=== PATIENT | male | born 1960 | race Caucasian/White ===

== ENCOUNTER 2021-08-06 15:58 | Inpatient (IN) ==
[2021-08-06 17:09] LABS: Immature Granulocytes % 0.4 % (0-4); Lymphocytes % 8.7 %; Mean Corpuscular Volume 95.6 fL (83.0-100.0); Red Cell Distribution Width 12.8 % (11.5-14.5)
[2021-08-06 17:11] LABS: Basophils % 0.5 %; Eosinophils % 0.3 %; Hematocrit 43.7 % (37.5-50.1); Hemoglobin 15.2 g/dL (12.9-16.9); Immature Platelets 9.2 % (1.1-6.1); Lymphocytes # 0.7 K/mcL (0.6-4.6); Mean Corpuscular HGB Conc 34.8 g/dL (31.6-35.5); Mean Corpuscular Hemoglobin 33.3 pg (28.0-33.3); Mean Platelet Volume 10.4 fL (9.4-12.4); Monocytes # 0.8 K/mcL (0.0-1.3); Monocytes % 10.4 %; Neutrophils # 6.2 K/mcL (1.6-8.9); Red Blood Count 4.57 M/mcL (4.19-5.50); Segmented Neutrophils % 79.7 %; White Blood Count 7.8 K/mcL (4.3-11.1)
[2021-08-06] MEDS ORDERED: Isovue-370 500 ML BOTTLE IVP ONE (17:15)
[2021-08-06] MEDS ORDERED: diazePAM 2 MG TABLET PO ONE (17:19)
[2021-08-06] MEDS ORDERED: Ketorolac 30 MG/ML VIAL IVP ONE (17:21)
[2021-08-06 17:27] LABS: BUN/Creatinine Ratio 6 (6-26); Blood Urea Nitrogen 3 mg/dL (6-20); Calcium 8.1 mg/dL (8.6-10.3); Carbon Dioxide 22 mEq/L (23-29); Chloride 88 mEq/L (98-107); Glucose 108 mg/dL (70-105); Osmolality,Calculated 249 (280-300); Potassium 3.5 mEq/L (3.5-5.1); Sodium 121 mEq/L (136-145); eGFR For African Americans > 60 (> 60); eGFR For Non-African Americans > 60 (> 60)
[2021-08-06 17:41] LABS: Troponin I 0.07 ng/mL (< 0.04)
[2021-08-06 17:48] LABS: Platelet Count 72 K/mcL (140-400)
[2021-08-06 17:49] LABS: Platelet Estimate Decreased (Normal)
[2021-08-06 19:04] LABS: Influenza A PCR Negative (Negative); Influenza B PCR Negative (Negative); Resp. Syncytial Virus PCR Negative (Negative)
[2021-08-06 19:05] LABS: SARS-CoV-2 by PCR (In House) Positive (Negative)
[2021-08-06 19:21] LABS: Bilirubin,Urine Negative (Negative); Blood,Urine Negative (Negative); Clarity,Urine Clear (Clear); Color,Urine Light-Yellow (Yellow); Glucose,Urine (UA) Normal (Normal); Ketones,Urine Negative (Negative); Leukocyte Esterase,Urine Negative (Negative); Nitrite,Urine Negative (Negative); PH,Urine 6.5 pH Units (5.0-8.0); Protein,Urine 30 mg/dL (Neg-Trace); RBC,Urine 0-3 per hpf (0-3); Specific Gravity,Urine > 1.030 (1.010-1.025); Urobilinogen,Urine Normal (Normal); WBC,Urine 0-3 per hpf (0-3)
[2021-08-06] MEDS ORDERED: Aspirin 325 MG TABLET PO ONE (20:09)
[2021-08-06] MEDS ORDERED: Naloxone 0.4 MG/ML INJ IVP PRN (20:55)
[2021-08-06] MEDS ORDERED: Acetaminophen 325 MG TABLET PO PRN (20:55)
[2021-08-06] MEDS ORDERED: Ondansetron 4 MG/2 ML VIAL IVP PRN (20:55)
[2021-08-06] MEDS ORDERED: Melatonin 3 MG TABLET PO PRN (20:55)
[2021-08-06] MEDS ORDERED: Saliva Stimulant 44.3ml BOTTLE PO PRN (20:58)
[2021-08-06] MEDS ORDERED: *HR* LORazepam 2 MG/ML VIAL IVP PRN ×2 (21:03)
[2021-08-06] MEDS ORDERED: Perflutren Lipid Microsphere 1.3 ML in 0.9 % Sodium Chloride 8.7 ML IVP PRN (21:19)
[2021-08-06] MEDS: Calcium Gluconate 1gm/50mL 1 GM/50 ML BAG IVPB SCH ×2 (22:14→23:05)
[2021-08-06] MEDS: Chlorhexidine Rinse 15 ML MOUTHWASH MM SCH (22:15)
[2021-08-06 22:30] LABS: C-Reactive Protein 10 mg/L (Less than 10); Lactate Dehydrogenase 231 Units/L (140-271)
[2021-08-06 22:31] LABS: Albumin 3.2 g/dL (3.5-5.7); Bilirubin,Direct 0.2 mg/dL (0.0-0.2); Bilirubin,Indirect 0.3 mg/dL (0.0-1.0); Bilirubin,Total 0.5 mg/dL (0.3-1.0); Globulin 3.2 g/dL (2.4-3.5); Total Protein 6.4 g/dL (6.4-8.9)
[2021-08-06 22:35] LABS: Troponin I 0.05 ng/mL (< 0.04)
[2021-08-06] MEDS ORDERED: GI Cocktail 40 ML EACH PO ONE (22:38)
[2021-08-06 22:50] LABS: Ferritin 210 ng/mL (20-250)
[2021-08-06 22:57] LABS: Amphetamine Screen,Urine Negative ng/mL (Cutoff=1000); Barbiturate Screen,Urine Negative ng/mL (Cutoff=200); Benzodiazepines Screen,Urine Negative ng/mL (Cutoff=200); Cannabinoid Screen,Urine Negative ng/mL (Cutoff = 50); Cocaine Screen,Urine Negative ng/mL (Cutoff= 300); Opiate Screen,Urine Negative ng/mL (Cutoff=300); Phencyclidine Screen,Urine Negative ng/mL (Cutoff=25)
[2021-08-06] MEDS: *HR* HYDROcodone/Acet 5/325 mg TABLET PO PRN (23:05)
[2021-08-06] MEDS: Budesonide/Formoterol 160/4.5 1 PUFF INH IH SCH (23:47)
[2021-08-06] MEDS: Ipratropium 1 PUFF INHALER IH SCH (23:47)
[2021-08-07] MEDS ORDERED: Furosemide 20 MG/2 ML VIAL IVP ONE (01:38)
[2021-08-07 01:48] LABS: Immature Granulocytes % 0.5 % (0-4); Lymphocytes % 5.4 %
[2021-08-07 01:50] LABS: Basophils % 0.3 %; Hemoglobin 14.5 g/dL (12.9-16.9); Immature Platelets 9.9 % (1.1-6.1); Lymphocytes # 0.5 K/mcL (0.6-4.6); Mean Corpuscular HGB Conc 34.5 g/dL (31.6-35.5); Mean Corpuscular Volume 95.7 fL (83.0-100.0); Mean Platelet Volume 10.6 fL (9.4-12.4); Monocytes # 0.8 K/mcL (0.0-1.3); Monocytes % 8.4 %; Neutrophils # 7.9 K/mcL (1.6-8.9); Platelet Count 66 K/mcL (140-400); Red Blood Count 4.39 M/mcL (4.19-5.50); Red Cell Distribution Width 12.8 % (11.5-14.5); Segmented Neutrophils % 85.4 %; White Blood Count 9.2 K/mcL (4.3-11.1)
[2021-08-07 01:55] LABS: Prothrombin Time 11.4 Seconds (9.4-12.1)
[2021-08-07 01:57] LABS: Estimated Average Glucose 131 mg/dl; Hemoglobin A1C 6.2 %
[2021-08-07 01:58] LABS: Activated Partial Thrombo Time 39.9 Seconds (26.0-36.0)
[2021-08-07 02:07] LABS: C-Reactive Protein 16 mg/L (Less than 10); Lactate Dehydrogenase 214 Units/L (140-271)
[2021-08-07 02:08] LABS: Alanine Aminotransferase 36 Units/L (7-52); Albumin 3.1 g/dL (3.5-5.7); Alkaline Phosphatase 160 Units/L (34-104); Aspartate Amino Transferase 96 Units/L (13-39); BUN/Creatinine Ratio 6 (6-26); Bilirubin,Total 0.6 mg/dL (0.3-1.0); Blood Urea Nitrogen 4 mg/dL (6-20); Calcium 8.7 mg/dL (8.6-10.3); Carbon Dioxide 28 mEq/L (23-29); Chloride 89 mEq/L (98-107); Chol/HDL Ratio 2.1 (0-4.9); Cholesterol 121 mg/dL (< 200); Ethanol < 10 mg/dL (Less than 10); Glucose 127 mg/dL (70-105); HDL Cholesterol 58 mg/dL (40-59); LDL Cholesterol,Calculated 53 mg/dL (< 100); Magnesium 1.8 mg/dL (1.6-2.6); Osmolality,Calculated 256 (280-300); Phosphorous 3.3 mg/dL (2.7-4.5); Potassium 3.8 mEq/L (3.5-5.1); Sodium 124 mEq/L (136-145); Total Protein 6.1 g/dL (6.4-8.9); Triglycerides 51 mg/dL (< 150); eGFR For African Americans > 60 (> 60); eGFR For Non-African Americans > 60 (> 60)
[2021-08-07 02:20] LABS: Thyroid Stimulating Hormone 0.866 mcIU/mL (0.340-5.600)
[2021-08-07 02:26] LABS: Ferritin 196 ng/mL (20-250)
[2021-08-07] MEDS: Nicotine 21 MG PATCH.TD24 TD SCH ×2 (02:44→21:28)
[2021-08-07] MEDS: Ipratropium 1 PUFF INHALER IH SCH ×4 (04:00→19:47)
[2021-08-07] MEDS ORDERED: Remdesivir 200 MG in 0.9 % Sodium Chloride 100 ML IVPB ONE (04:00)
[2021-08-07] MEDS ORDERED: *HR* Promethazine 25 MG/ML VIAL IM PRN (05:12)
[2021-08-07 05:40] LABS: ABG Base Excess 8 mEq/L (-2 to 3); ABG HCO3 30 mEq/L (21-27); ABG Oxygen Saturation 92 % (95-98); ABG PCO2 34 mmHg (35-45); ABG PH 7.55 pH Units (7.32-7.45); ABG PO2 53 mmHg (85-104); ABG TCO2 31 mEq/L (20-26)
[2021-08-07] MEDS: Thiamine (B-1) 100 MG TABLET PO SCH (09:44)
[2021-08-07] MEDS: Vitamin B Complex/Vit C/Vit E 1 EACH TABLET PO SCH (09:44)
[2021-08-07] MEDS: Cholecalciferol (D-3) 1,000 UNIT (25MCG) TABLET PO SCH (09:44)
[2021-08-07] MEDS: Folic Acid 1 MG TABLET PO SCH (09:44)
[2021-08-07] MEDS: Chlorhexidine Rinse 15 ML MOUTHWASH MM SCH ×2 (09:44→21:28)
[2021-08-07] MEDS: Gabapentin 300 MG CAPSULE PO SCH ×3 (09:44→23:47)
[2021-08-07] MEDS: Azithromycin 250 MG TABLET PO SCH (09:44)
[2021-08-07] MEDS: Aspirin 81 MG TAB.CHEW PO SCH (09:44)
[2021-08-07] MEDS: Furosemide 20 MG/2 ML VIAL IVP SCH (09:45)
[2021-08-07] MEDS: carvediloL 6.25 MG TABLET PO SCH ×2 (09:49→16:16)
[2021-08-07] MEDS: Artificial Tears SOLN 15 ML BOTTLE BOTH EYES SCH ×4 (09:51→21:40)
[2021-08-07] MEDS: Saliva Stimulant 44.3ml BOTTLE PO SCH ×4 (10:04→21:41)
[2021-08-07] MEDS: Saline Nasal Spray 44 ML BOTTLE NS SCH ×4 (10:04→21:41)
[2021-08-07] MEDS: Budesonide/Formoterol 160/4.5 1 PUFF INH IH SCH ×2 (10:45→19:47)
[2021-08-07] MEDS ORDERED: 0.9 % Sodium Chloride 500 ML IVC ONE (12:21)
[2021-08-07] MEDS: *HR* LORazepam 2 MG/ML VIAL IVP PRN (16:16)
[2021-08-07] MEDS ORDERED: Isovue-370 500 ML BOTTLE IVP ONE (17:29)
[2021-08-07] MEDS ORDERED: 0.9 % Sodium Chloride 1,000 ML IV ONE (21:22)
[2021-08-07] MEDS ORDERED: 0.9 % Sodium Chloride 1,000 ML ONE (21:26)
[2021-08-08 01:09] LABS: Mean Corpuscular Hemoglobin 33.9 pg (28.0-33.3); Red Cell Distribution Width 13.1 % (11.5-14.5); White Blood Count 11.4 K/mcL (4.3-11.1)
[2021-08-08 01:11] LABS: Basophils % 0.1 %; Hematocrit 43.2 % (37.5-50.1); Hemoglobin 14.6 g/dL (12.9-16.9); Immature Granulocytes % 0.8 % (0-4); Immature Platelets 11.4 % (1.1-6.1); Lymphocytes % 7.4 %; Mean Corpuscular HGB Conc 33.8 g/dL (31.6-35.5); Mean Corpuscular Volume 100.2 fL (83.0-100.0); Mean Platelet Volume 10.7 fL (9.4-12.4); Monocytes # 0.8 K/mcL (0.0-1.3); Monocytes % 6.8 %; Neutrophils # 9.7 K/mcL (1.6-8.9); Red Blood Count 4.31 M/mcL (4.19-5.50); Segmented Neutrophils % 84.9 %
[2021-08-08 01:12] LABS: Lymphocytes # 0.8 K/mcL (0.6-4.6); Platelet Count 73 K/mcL (140-400)
[2021-08-08 01:28] LABS: Alanine Aminotransferase 33 Units/L (7-52); Albumin 3.1 g/dL (3.5-5.7); Albumin/Globulin Ratio 0.9 (1.1-2.2); Alkaline Phosphatase 129 Units/L (34-104); Aspartate Amino Transferase 57 Units/L (13-39); BUN/Creatinine Ratio 12 (6-26); Bilirubin,Total 0.5 mg/dL (0.3-1.0); Blood Urea Nitrogen 8 mg/dL (6-20); C-Reactive Protein 42 mg/L (Less than 10); Carbon Dioxide 28 mEq/L (23-29); Chloride 95 mEq/L (98-107); Globulin 3.3 g/dL (2.4-3.5); Glucose 150 mg/dL (70-105); Osmolality,Calculated 269 (280-300); Potassium 3.7 mEq/L (3.5-5.1); Sodium 129 mEq/L (136-145); Total Protein 6.4 g/dL (6.4-8.9); eGFR For African Americans > 60 (> 60); eGFR For Non-African Americans > 60 (> 60)
[2021-08-08] MEDS: Ipratropium 1 PUFF INHALER IH SCH ×4 (03:45→20:03)
[2021-08-08] MEDS: Remdesivir 100 MG in 0.9 % Sodium Chloride 100 ML IVPB SCH (04:59)
[2021-08-08] MEDS: Azithromycin 250 MG TABLET PO SCH (08:25)
[2021-08-08] MEDS: Furosemide 20 MG/2 ML VIAL IVP SCH (08:25)
[2021-08-08] MEDS: Vitamin B Complex/Vit C/Vit E 1 EACH TABLET PO SCH (08:25)
[2021-08-08] MEDS: Folic Acid 1 MG TABLET PO SCH (08:25)
[2021-08-08] MEDS: Chlorhexidine Rinse 15 ML MOUTHWASH MM SCH ×2 (08:25→20:08)
[2021-08-08] MEDS: Gabapentin 300 MG CAPSULE PO SCH ×3 (08:26→16:18)
[2021-08-08] MEDS: Aspirin 81 MG TAB.CHEW PO SCH (08:26)
[2021-08-08] MEDS: Cholecalciferol (D-3) 1,000 UNIT (25MCG) TABLET PO SCH (08:26)
[2021-08-08] MEDS: carvediloL 6.25 MG TABLET PO SCH ×2 (08:26→16:18)
[2021-08-08] MEDS: Thiamine (B-1) 100 MG TABLET PO SCH (08:26)
[2021-08-08] MEDS: Budesonide/Formoterol 160/4.5 1 PUFF INH IH SCH ×2 (08:27→20:04)
[2021-08-08] MEDS: Saliva Stimulant 44.3ml BOTTLE PO SCH ×4 (08:34→20:12)
[2021-08-08] MEDS: Saline Nasal Spray 44 ML BOTTLE NS SCH ×4 (08:34→20:12)
[2021-08-08] MEDS: Artificial Tears SOLN 15 ML BOTTLE BOTH EYES SCH ×4 (08:34→20:12)
[2021-08-08] MEDS: *HR* LORazepam 2 MG/ML VIAL IVP PRN (13:05)
[2021-08-08] MEDS: *HR* HYDROcodone/Acet 5/325 mg TABLET PO PRN (13:05)
[2021-08-08] MEDS: Nicotine 21 MG PATCH.TD24 TD SCH (20:09)
[2021-08-09] MEDS: Gabapentin 300 MG CAPSULE PO SCH ×4 (00:24→21:32)
[2021-08-09 03:26] LABS: Basophils % 0.2 %
[2021-08-09 03:28] LABS: Eosinophils % 0.3 %; Hematocrit 37.4 % (37.5-50.1); Hemoglobin 12.6 g/dL (12.9-16.9); Immature Granulocytes % 0.5 % (0-4); Lymphocytes % 10.6 %; Mean Corpuscular HGB Conc 33.7 g/dL (31.6-35.5); Mean Corpuscular Hemoglobin 33.4 pg (28.0-33.3); Mean Corpuscular Volume 99.2 fL (83.0-100.0); Mean Platelet Volume 11.5 fL (9.4-12.4); Monocytes # 0.7 K/mcL (0.0-1.3); Monocytes % 7.4 %; Red Blood Count 3.77 M/mcL (4.19-5.50); White Blood Count 9.6 K/mcL (4.3-11.1)
[2021-08-09] MEDS: Ipratropium 1 PUFF INHALER IH SCH ×4 (03:32→20:03)
[2021-08-09 03:35] LABS: Neutrophils # 7.8 K/mcL (1.6-8.9); Platelet Count 61 K/mcL (140-400)
[2021-08-09 03:46] LABS: Alanine Aminotransferase 25 Units/L (7-52); Albumin 2.8 g/dL (3.5-5.7); Alkaline Phosphatase 105 Units/L (34-104); Aspartate Amino Transferase 50 Units/L (13-39); BUN/Creatinine Ratio 13 (6-26); Bilirubin,Total 0.5 mg/dL (0.3-1.0); Blood Urea Nitrogen 9 mg/dL (6-20); C-Reactive Protein 32 mg/L (Less than 10); Calcium 7.9 mg/dL (8.6-10.3); Carbon Dioxide 28 mEq/L (23-29); Chloride 96 mEq/L (98-107); Globulin 2.9 g/dL (2.4-3.5); Glucose 148 mg/dL (70-105); Osmolality,Calculated 273 (280-300); Potassium 3.3 mEq/L (3.5-5.1); Sodium 131 mEq/L (136-145); Total Protein 5.7 g/dL (6.4-8.9); eGFR For African Americans > 60 (> 60); eGFR For Non-African Americans > 60 (> 60)
[2021-08-09] MEDS: Remdesivir 100 MG in 0.9 % Sodium Chloride 100 ML IVPB SCH (06:05)
[2021-08-09] MEDS: Budesonide/Formoterol 160/4.5 1 PUFF INH IH SCH ×2 (07:44→20:03)
[2021-08-09] MEDS ORDERED: Potassium Chloride Elixir 20 MEQ/15 ML UDC PO ONE (08:07)
[2021-08-09] MEDS ORDERED: Isovue-370 500 ML BOTTLE IVP ONE (08:10)
[2021-08-09] MEDS: Azithromycin 250 MG TABLET PO SCH (10:06)
[2021-08-09] MEDS: Thiamine (B-1) 100 MG TABLET PO SCH (10:06)
[2021-08-09] MEDS: Vitamin B Complex/Vit C/Vit E 1 EACH TABLET PO SCH (10:06)
[2021-08-09] MEDS: Cholecalciferol (D-3) 1,000 UNIT (25MCG) TABLET PO SCH (10:07)
[2021-08-09] MEDS: Aspirin 81 MG TAB.CHEW PO SCH (10:07)
[2021-08-09] MEDS: Folic Acid 1 MG TABLET PO SCH (10:07)
[2021-08-09] MEDS: carvediloL 6.25 MG TABLET PO SCH ×2 (10:07→16:36)
[2021-08-09] MEDS: Chlorhexidine Rinse 15 ML MOUTHWASH MM SCH ×2 (10:07→21:32)
[2021-08-09] MEDS: Furosemide 20 MG/2 ML VIAL IVP SCH (10:07)
[2021-08-09] MEDS: Saline Nasal Spray 44 ML BOTTLE NS SCH ×4 (10:19→21:33)
[2021-08-09] MEDS: Artificial Tears SOLN 15 ML BOTTLE BOTH EYES SCH ×4 (10:19→21:33)
[2021-08-09] MEDS: Saliva Stimulant 44.3ml BOTTLE PO SCH ×4 (10:19→21:33)
[2021-08-09] MEDS: *HR* LORazepam 2 MG/ML VIAL IVP PRN (11:08)
[2021-08-09] MEDS: *HR* HYDROcodone/Acet 5/325 mg TABLET PO PRN (11:08)
[2021-08-09] MEDS: levoFLOXacin 750 MG/150 ML 750 MG/150 ML BAG IVPB SCH (11:50)
[2021-08-09] MEDS: *HR* Enoxaparin 60 MG/0.6 ML SYRINGE SQ SCH (16:36)
[2021-08-09] MEDS: Nicotine 21 MG PATCH.TD24 TD SCH (21:32)
[2021-08-10] MEDS: Remdesivir 100 MG in 0.9 % Sodium Chloride 100 ML IVPB SCH (03:48)
[2021-08-10] MEDS: Ipratropium 1 PUFF INHALER IH SCH ×4 (04:44→19:34)
[2021-08-10] MEDS: *HR* HYDROcodone/Acet 5/325 mg TABLET PO PRN ×2 (05:18→15:24)
[2021-08-10] MEDS: *HR* Enoxaparin 60 MG/0.6 ML SYRINGE SQ SCH ×2 (05:21→16:50)
[2021-08-10] MEDS: Budesonide/Formoterol 160/4.5 1 PUFF INH IH SCH ×2 (07:22→19:35)
[2021-08-10] MEDS: Folic Acid 1 MG TABLET PO SCH (08:57)
[2021-08-10] MEDS: Furosemide 20 MG/2 ML VIAL IVP SCH (08:57)
[2021-08-10] MEDS: Cholecalciferol (D-3) 1,000 UNIT (25MCG) TABLET PO SCH (08:57)
[2021-08-10] MEDS: Chlorhexidine Rinse 15 ML MOUTHWASH MM SCH ×2 (08:57→20:10)
[2021-08-10] MEDS: Vitamin B Complex/Vit C/Vit E 1 EACH TABLET PO SCH (08:57)
[2021-08-10] MEDS: Aspirin 81 MG TAB.CHEW PO SCH (08:57)
[2021-08-10] MEDS: levoFLOXacin 750 MG/150 ML 750 MG/150 ML BAG IVPB SCH (08:57)
[2021-08-10] MEDS: Azithromycin 250 MG TABLET PO SCH (08:58)
[2021-08-10] MEDS: Gabapentin 300 MG CAPSULE PO SCH ×3 (08:58→20:10)
[2021-08-10] MEDS: carvediloL 6.25 MG TABLET PO SCH ×2 (08:58→16:50)
[2021-08-10] MEDS: Thiamine (B-1) 100 MG TABLET PO SCH (08:58)
[2021-08-10 09:22] LABS: Basophils % 0.2 %
[2021-08-10] MEDS: Saliva Stimulant 44.3ml BOTTLE PO SCH ×4 (09:22→20:09)
[2021-08-10] MEDS: Artificial Tears SOLN 15 ML BOTTLE BOTH EYES SCH ×4 (09:22→20:09)
[2021-08-10] MEDS: Saline Nasal Spray 44 ML BOTTLE NS SCH ×4 (09:22→20:09)
[2021-08-10 09:24] LABS: Eosinophils # 0.1 K/mcL (0.0-0.6); Eosinophils % 0.5 %; Hematocrit 38.5 % (37.5-50.1); Hemoglobin 13.1 g/dL (12.9-16.9); Immature Granulocytes % 0.4 % (0-4); Immature Platelets 11.1 % (1.1-6.1); Lymphocytes # 1.4 K/mcL (0.6-4.6); Mean Platelet Volume 11.9 fL (9.4-12.4); Monocytes # 1.1 K/mcL (0.0-1.3); Monocytes % 12.4 %; Neutrophils # 6.6 K/mcL (1.6-8.9); Red Blood Count 3.85 M/mcL (4.19-5.50); Red Cell Distribution Width 12.9 % (11.5-14.5); Segmented Neutrophils % 71.5 %; White Blood Count 9.2 K/mcL (4.3-11.1)
[2021-08-10 09:31] LABS: Platelet Count 86 K/mcL (140-400)
[2021-08-10 09:44] LABS: Alanine Aminotransferase 25 Units/L (7-52); Albumin/Globulin Ratio 1.1 (1.1-2.2); Alkaline Phosphatase 116 Units/L (34-104); Aspartate Amino Transferase 42 Units/L (13-39); BUN/Creatinine Ratio 19 (6-26); Bilirubin,Total 0.4 mg/dL (0.3-1.0); Blood Urea Nitrogen 13 mg/dL (6-20); Carbon Dioxide 30 mEq/L (23-29); Chloride 97 mEq/L (98-107); Globulin 2.8 g/dL (2.4-3.5); Glucose 164 mg/dL (70-105); Osmolality,Calculated 278 (280-300); Potassium 3.2 mEq/L (3.5-5.1); Sodium 132 mEq/L (136-145); Total Protein 5.8 g/dL (6.4-8.9); eGFR For African Americans > 60 (> 60); eGFR For Non-African Americans > 60 (> 60)
[2021-08-10 10:10] LABS: C-Reactive Protein 28 mg/L (Less than 10)
[2021-08-10] MEDS ORDERED: Perflutren Lipid Microsphere 1.3 ML in 0.9 % Sodium Chloride 8.7 ML IVP PRN (10:14)
[2021-08-10] MEDS ORDERED: Potassium Chloride Elixir 20 MEQ/15 ML UDC PO ONE (12:14)
[2021-08-10] MEDS: Nicotine 21 MG PATCH.TD24 TD SCH (20:10)
[2021-08-11] MEDS: Ipratropium 1 PUFF INHALER IH SCH ×2 (03:40→07:30)
[2021-08-11] MEDS: Remdesivir 100 MG in 0.9 % Sodium Chloride 100 ML IVPB SCH (04:21)
[2021-08-11] MEDS: *HR* Enoxaparin 60 MG/0.6 ML SYRINGE SQ SCH (04:22)
[2021-08-11 07:10] LABS: Basophils % 0.2 %; Eosinophils % 0.4 %; Hematocrit 37.5 % (37.5-50.1); Hemoglobin 12.5 g/dL (12.9-16.9); Immature Granulocytes % 0.4 % (0-4); Lymphocytes # 1.4 K/mcL (0.6-4.6); Mean Corpuscular HGB Conc 33.3 g/dL (31.6-35.5); Mean Corpuscular Hemoglobin 32.6 pg (28.0-33.3); Mean Corpuscular Volume 97.9 fL (83.0-100.0); Mean Platelet Volume 11.9 fL (9.4-12.4); Monocytes # 1.1 K/mcL (0.0-1.3); Monocytes % 11.9 %; Platelet Count 114 K/mcL (140-400); Red Blood Count 3.83 M/mcL (4.19-5.50); Red Cell Distribution Width 12.7 % (11.5-14.5); Segmented Neutrophils % 73.1 %; White Blood Count 9.6 K/mcL (4.3-11.1)
[2021-08-11 07:27] LABS: Alanine Aminotransferase 26 Units/L (7-52); Albumin 3.1 g/dL (3.5-5.7); Albumin/Globulin Ratio 1.1 (1.1-2.2); Alkaline Phosphatase 108 Units/L (34-104); Aspartate Amino Transferase 42 Units/L (13-39); BUN/Creatinine Ratio 17 (6-26); Bilirubin,Total 0.5 mg/dL (0.3-1.0); Blood Urea Nitrogen 11 mg/dL (6-20); Calcium 8.2 mg/dL (8.6-10.3); Carbon Dioxide 26 mEq/L (23-29); Chloride 97 mEq/L (98-107); Globulin 2.9 g/dL (2.4-3.5); Glucose 281 mg/dL (70-105); Osmolality,Calculated 282 (280-300); Potassium 3.1 mEq/L (3.5-5.1); Sodium 131 mEq/L (136-145); eGFR For African Americans > 60 (> 60); eGFR For Non-African Americans > 60 (> 60)
[2021-08-11] MEDS: Budesonide/Formoterol 160/4.5 1 PUFF INH IH SCH (07:31)
[2021-08-11] MEDS: Chlorhexidine Rinse 15 ML MOUTHWASH MM SCH (08:16)
[2021-08-11] MEDS: levoFLOXacin 750 MG/150 ML 750 MG/150 ML BAG IVPB SCH (08:16)
[2021-08-11] MEDS: Cholecalciferol (D-3) 1,000 UNIT (25MCG) TABLET PO SCH (08:17)
[2021-08-11] MEDS: Azithromycin 250 MG TABLET PO SCH (08:17)
[2021-08-11] MEDS: Gabapentin 300 MG CAPSULE PO SCH (08:18)
[2021-08-11] MEDS: Folic Acid 1 MG TABLET PO SCH (08:18)
[2021-08-11] MEDS: Furosemide 20 MG/2 ML VIAL IVP SCH (08:19)
[2021-08-11] MEDS: carvediloL 6.25 MG TABLET PO SCH (08:19)
[2021-08-11] MEDS: Vitamin B Complex/Vit C/Vit E 1 EACH TABLET PO SCH (08:19)
[2021-08-11] MEDS: Thiamine (B-1) 100 MG TABLET PO SCH (08:19)
[2021-08-11] MEDS: Aspirin 81 MG TAB.CHEW PO SCH (08:20)
[2021-08-11] MEDS: Saline Nasal Spray 44 ML BOTTLE NS SCH ×2 (08:23→12:00)
[2021-08-11] MEDS: Saliva Stimulant 44.3ml BOTTLE PO SCH ×2 (08:23→12:00)
[2021-08-11] MEDS: Artificial Tears SOLN 15 ML BOTTLE BOTH EYES SCH ×2 (08:23→12:01)
[2021-08-11 10:32] VITALS: BP 121/75; PULSE 96; TEMP 97.6
[2021-08-11 13:32] VITALS: O2SAT 98
== END 2021-08-11 14:40 | disposition home or self-care (01) | DRG 137 ==
LOC: SUATTDRO → 3BNU 15:58 → EMEROOARM 15:58 → SUATTDRO 20:41 → 3BNU 21:23
PROVIDERS: ADMIT Internal Medicine; ATTEND Internal Medicine

== ENCOUNTER 2021-12-15 18:27 | Inpatient (IN) ==
[2021-12-15] MEDS ORDERED: 0.9 % Sodium Chloride 1,000 ML IVC ONE ×2 (18:54→19:43)
[2021-12-15] MEDS ORDERED: methylPREDNISolone 125 MG/2 ML VIAL IVP ONE (18:55)
[2021-12-15] MEDS ORDERED: Ipratropium/Albuterol Neb 3 ML IH ONE (18:55)
[2021-12-15 19:20] LABS: VBG HCO3 24 mEq/L (21-27); VBG PCO2 33 mmHg (41-51); VBG PH 7.46 pH Units (7.32-7.42); VBG PO2 52 mmHg (25-50)
[2021-12-15 19:23] LABS: Hemoglobin 14.7 g/dL (12.9-16.9); Mean Corpuscular Volume 83.8 fL (83.0-100.0)
[2021-12-15 19:24] LABS: Hematocrit 40.2 % (37.5-50.1); Lymphocytes # 1.1 K/mcL (0.6-4.6); Mean Corpuscular HGB Conc 36.6 g/dL (31.6-35.5); Mean Corpuscular Hemoglobin 30.6 pg (28.0-33.3); Mean Platelet Volume 10.1 fL (9.4-12.4); Platelet Count 178 K/mcL (140-400); Red Cell Distribution Width 13.6 % (11.5-14.5); White Blood Count 28.4 K/mcL (4.3-11.1)
[2021-12-15 19:31] LABS: INR 1.4; Prothrombin Time 15.4 Seconds (9.4-12.1)
[2021-12-15 19:34] LABS: Activated Partial Thrombo Time 33.9 Seconds (26.0-36.0)
[2021-12-15] MEDS ORDERED: Piperacillin/Tazobactam 3.375 GM in 0.9 % Sodium Chloride Mini Bag 100 ML IVPB ONE (19:43)
[2021-12-15 19:52] LABS: Alanine Aminotransferase 37 Units/L (7-52); Albumin 3.1 g/dL (3.5-5.7); Alkaline Phosphatase 149 Units/L (34-104); Aspartate Amino Transferase 64 Units/L (13-39); BUN/Creatinine Ratio 4 (6-26); Bilirubin,Direct 0.4 mg/dL (0.0-0.2); Bilirubin,Indirect 0.7 mg/dL (0.0-1.0); Bilirubin,Total 1.1 mg/dL (0.3-1.0); Blood Urea Nitrogen 2 mg/dL (8-23); Carbon Dioxide 25 mEq/L (23-29); Chloride 73 mEq/L (98-107); Globulin 3.2 g/dL (2.4-3.5); Glucose 195 mg/dL (70-105); Lipase < 3 Units/L (11-82); Magnesium 1.8 mg/dL (1.6-2.6); Osmolality,Calculated 232 (280-300); Phosphorous 2.4 mg/dL (2.7-4.5); Sodium 110 mEq/L (136-145); Total Protein 6.3 g/dL (6.4-8.9); Troponin I 0.08 ng/mL (< 0.04); eGFR For African Americans > 60 (> 60); eGFR For Non-African Americans > 60 (> 60)
[2021-12-15 19:54] LABS: Monocytes # 1.7 K/mcL (0.0-1.3); Neutrophils # 25.6 K/mcL (1.6-8.9); Platelet Estimate Normal (Normal)
[2021-12-15] MEDS ORDERED: Potassium Chloride Elixir 20 MEQ/15 ML UDC PO ONE (19:55)
[2021-12-15 20:15] LABS: Influenza A PCR Negative (Negative); Influenza B PCR Negative (Negative); Resp. Syncytial Virus PCR Negative (Negative)
[2021-12-15 20:16] LABS: SARS-CoV-2 by PCR (In House) Negative (Negative)
[2021-12-15 21:32] LABS: Bilirubin,Urine Negative (Negative); Blood,Urine Negative (Negative); Clarity,Urine Clear (Clear); Color,Urine Colorless (Yellow); Glucose,Urine (UA) Normal (Normal); Ketones,Urine Negative (Negative); Leukocyte Esterase,Urine Negative (Negative); Nitrite,Urine Negative (Negative); PH,Urine 6.5 pH Units (5.0-8.0); Protein,Urine Negative (Neg-Trace); Specific Gravity,Urine 1.005 (1.010-1.025); Urobilinogen,Urine Normal (Normal)
[2021-12-15 21:50] LABS: Amphetamine Screen,Urine Negative ng/mL (Cutoff=1000); Barbiturate Screen,Urine Negative ng/mL (Cutoff=200); Benzodiazepines Screen,Urine Negative ng/mL (Cutoff=200); Cannabinoid Screen,Urine Negative ng/mL (Cutoff = 50); Cocaine Screen,Urine Negative ng/mL (Cutoff= 300); Opiate Screen,Urine Negative ng/mL (Cutoff=300); Phencyclidine Screen,Urine Negative ng/mL (Cutoff=25)
[2021-12-15] MEDS ORDERED: Naloxone 0.4 MG/ML INJ IVP PRN (22:23)
[2021-12-15] MEDS ORDERED: *HR* LORazepam 2 MG/ML VIAL IVP PRN ×2 (23:09)
[2021-12-15] MEDS: Piperacillin/Tazobactam 3.375 GM in 0.9 % Sodium Chloride Mini Bag 100 ML IVPB SCH (23:38)
[2021-12-15] MEDS: Ondansetron 4 MG/2 ML VIAL IVP PRN (23:39)
[2021-12-15] MEDS: *HR* LORazepam 2 MG/ML VIAL IVP PRN (23:39)
[2021-12-15] MEDS ORDERED: Albuterol 2.5 MG/3 ML NEBULIZER IH PRN (23:55)
[2021-12-16] MEDS ORDERED: 0.9 % Sodium Chloride 1,000 ML IVC SCH (01:00)
[2021-12-16 01:01] LABS: VBG Ionized Calcium 1.01 mmol/L (1.15-1.35)
[2021-12-16 01:18] LABS: BUN/Creatinine Ratio 5 (6-26); Blood Urea Nitrogen 2 mg/dL (8-23); Calcium 7.2 mg/dL (8.6-10.3); Carbon Dioxide 24 mEq/L (23-29); Chloride 88 mEq/L (98-107); Glucose 180 mg/dL (70-105); Osmolality,Calculated 249 (280-300); Potassium 3.2 mEq/L (3.5-5.1); Sodium 119 mEq/L (136-145); eGFR For African Americans > 60 (> 60); eGFR For Non-African Americans > 60 (> 60)
[2021-12-16] MEDS: Ipratropium/Albuterol Neb 3 ML IH SCH ×4 (04:20→23:08)
[2021-12-16 04:51] LABS: Basophils # 0.1 K/mcL (0.0-0.2); Basophils % 0.5 %; Hematocrit 39.2 % (37.5-50.1); Hemoglobin 13.9 g/dL (12.9-16.9); Immature Granulocytes % 0.7 % (0-4); Lymphocytes # 0.4 K/mcL (0.6-4.6); Mean Corpuscular HGB Conc 35.5 g/dL (31.6-35.5); Mean Corpuscular Hemoglobin 30.2 pg (28.0-33.3); Mean Corpuscular Volume 85.2 fL (83.0-100.0); Mean Platelet Volume 10.5 fL (9.4-12.4); Monocytes # 0.4 K/mcL (0.0-1.3); Neutrophils # 17.8 K/mcL (1.6-8.9); Platelet Count 171 K/mcL (140-400); Red Cell Distribution Width 13.8 % (11.5-14.5); Segmented Neutrophils % 94.8 %; White Blood Count 18.7 K/mcL (4.3-11.1)
[2021-12-16 04:58] LABS: INR 1.4; Prothrombin Time 15.7 Seconds (9.4-12.1)
[2021-12-16 05:29] LABS: BUN/Creatinine Ratio 7 (6-26); Blood Urea Nitrogen 3 mg/dL (8-23); Calcium 7.6 mg/dL (8.6-10.3); Carbon Dioxide 25 mEq/L (23-29); Chloride 89 mEq/L (98-107); Glucose 185 mg/dL (70-105); Osmolality,Calculated 255 (280-300); Potassium 3.6 mEq/L (3.5-5.1); Sodium 122 mEq/L (136-145); Troponin I 0.05 ng/mL (< 0.04); eGFR For African Americans > 60 (> 60); eGFR For Non-African Americans > 60 (> 60)
[2021-12-16] MEDS ORDERED: Vancomycin 1,250 MG/262.5 ML IV.SOLN IVPB SCH (08:00)
[2021-12-16] MEDS: MethylPREDNISolone 40 MG/ML VIAL IVP SCH ×3 (08:44→19:52)
[2021-12-16] MEDS: Vitamin B Complex/Vit C/Vit E 1 EACH TABLET PO SCH (08:45)
[2021-12-16] MEDS: Thiamine (B-1) 100 MG TABLET PO SCH (08:45)
[2021-12-16] MEDS: Folic Acid 1 MG TABLET PO SCH (08:45)
[2021-12-16 11:09] LABS: BUN/Creatinine Ratio 12 (6-26); Blood Urea Nitrogen 5 mg/dL (8-23); Calcium 7.6 mg/dL (8.6-10.3); Carbon Dioxide 27 mEq/L (23-29); Chloride 89 mEq/L (98-107); Glucose 185 mg/dL (70-105); Osmolality,Calculated 258 (280-300); Potassium 3.6 mEq/L (3.5-5.1); Sodium 123 mEq/L (136-145); eGFR For African Americans > 60 (> 60); eGFR For Non-African Americans > 60 (> 60)
[2021-12-16] MEDS: Beer can PO SCH ×3 (11:36→18:26)
[2021-12-16] MEDS: Piperacillin/Tazobactam 3.375 GM in 0.9 % Sodium Chloride Mini Bag 100 ML IVPB SCH ×3 (11:55→23:11)
[2021-12-16 15:33] LABS: BUN/Creatinine Ratio 16 (6-26); Blood Urea Nitrogen 7 mg/dL (8-23); Calcium 7.6 mg/dL (8.6-10.3); Carbon Dioxide 27 mEq/L (23-29); Chloride 90 mEq/L (98-107); Glucose 255 mg/dL (70-105); Osmolality,Calculated 265 (280-300); Potassium 3.5 mEq/L (3.5-5.1); Sodium 124 mEq/L (136-145); eGFR For African Americans > 60 (> 60); eGFR For Non-African Americans > 60 (> 60)
[2021-12-16] MEDS: Ondansetron 4 MG/2 ML VIAL IVP PRN (15:43)
[2021-12-16] MEDS: *HR* Heparin 5,000 UNIT/ML VIAL SQ SCH (18:24)
[2021-12-16 18:46] LABS: BUN/Creatinine Ratio 16 (6-26); Blood Urea Nitrogen 9 mg/dL (8-23); Carbon Dioxide 27 mEq/L (23-29); Chloride 90 mEq/L (98-107); Glucose 214 mg/dL (70-105); Osmolality,Calculated 267 (280-300); Potassium 3.6 mEq/L (3.5-5.1); Sodium 126 mEq/L (136-145); eGFR For African Americans > 60 (> 60); eGFR For Non-African Americans > 60 (> 60)
[2021-12-16] MEDS ORDERED: Dextrose 4 GM Chewable Tablets PO PRN ×2 (18:48)
[2021-12-16] MEDS ORDERED: D5% in Water 1,000 ML IVC PRN (18:48)
[2021-12-16] MEDS: D5% in Water 1,000 ML IVC SCH (19:36)
[2021-12-16] MEDS: Insulin LISPRO 300 UNITS/3 ML VIAL SUBQ SCH (20:12)
[2021-12-16] MEDS: Nicotine 21 MG PATCH.TD24 TD SCH (20:12)
[2021-12-16] MEDS ORDERED: Insulin LISPRO 300 UNITS/3 ML VIAL SUBQ SCH (21:00)
[2021-12-16 23:27] LABS: BUN/Creatinine Ratio 19 (6-26); Blood Urea Nitrogen 10 mg/dL (8-23); Calcium 7.7 mg/dL (8.6-10.3); Carbon Dioxide 29 mEq/L (23-29); Chloride 90 mEq/L (98-107); Glucose 109 mg/dL (70-105); Osmolality,Calculated 262 (280-300); Potassium 3.4 mEq/L (3.5-5.1); Sodium 126 mEq/L (136-145); eGFR For African Americans > 60 (> 60); eGFR For Non-African Americans > 60 (> 60)
[2021-12-17 01:15] LABS: Basophils # 0.1 K/mcL (0.0-0.2); Basophils % 0.3 %; Hematocrit 34.8 % (37.5-50.1); Immature Granulocytes % 1.1 % (0-4); Lymphocytes # 0.8 K/mcL (0.6-4.6); Lymphocytes % 3.4 %; Mean Corpuscular HGB Conc 35.3 g/dL (31.6-35.5); Mean Corpuscular Hemoglobin 30.9 pg (28.0-33.3); Mean Corpuscular Volume 87.4 fL (83.0-100.0); Mean Platelet Volume 10.1 fL (9.4-12.4); Monocytes # 1.4 K/mcL (0.0-1.3); Monocytes % 6.2 %; Neutrophils # 20.4 K/mcL (1.6-8.9); Platelet Count 180 K/mcL (140-400); Red Blood Count 3.98 M/mcL (4.19-5.50); Red Cell Distribution Width 13.9 % (11.5-14.5); White Blood Count 22.9 K/mcL (4.3-11.1)
[2021-12-17 01:16] LABS: Hemoglobin 12.3 g/dL (12.9-16.9)
[2021-12-17 01:28] LABS: VBG Ionized Calcium 1.13 mmol/L (1.15-1.35)
[2021-12-17 01:34] LABS: Magnesium 2.1 mg/dL (1.6-2.6); Phosphorous 2.1 mg/dL (2.7-4.5)
[2021-12-17 01:35] LABS: BUN/Creatinine Ratio 21 (6-26); Blood Urea Nitrogen 10 mg/dL (8-23); Calcium 7.4 mg/dL (8.6-10.3); Carbon Dioxide 29 mEq/L (23-29); Chloride 89 mEq/L (98-107); Glucose 149 mg/dL (70-105); Osmolality,Calculated 258 (280-300); Potassium 3.6 mEq/L (3.5-5.1); Sodium 123 mEq/L (136-145); eGFR For African Americans > 60 (> 60); eGFR For Non-African Americans > 60 (> 60)
[2021-12-17] MEDS: MethylPREDNISolone 40 MG/ML VIAL IVP SCH ×4 (01:47→20:14)
[2021-12-17] MEDS: Pantoprazole 40 MG VIAL IVP SCH ×2 (01:47→07:33)
[2021-12-17] MEDS: Ipratropium/Albuterol Neb 3 ML IH SCH ×4 (03:59→23:15)
[2021-12-17] MEDS: *HR* Heparin 5,000 UNIT/ML VIAL SQ SCH ×2 (05:24→17:38)
[2021-12-17] MEDS: Doxycycline 100 MG in 0.9 % Sodium Chloride Mini Bag 100 ML IVPB SCH ×2 (05:24→17:37)
[2021-12-17] MEDS: Thiamine (B-1) 100 MG TABLET PO SCH (07:33)
[2021-12-17] MEDS: Vitamin B Complex/Vit C/Vit E 1 EACH TABLET PO SCH (07:33)
[2021-12-17] MEDS: Folic Acid 1 MG TABLET PO SCH (07:33)
[2021-12-17] MEDS: Nicotine 21 MG PATCH.TD24 TD SCH (07:33)
[2021-12-17] MEDS: Piperacillin/Tazobactam 3.375 GM in 0.9 % Sodium Chloride Mini Bag 100 ML IVPB SCH ×3 (07:34→23:00)
[2021-12-17] MEDS: Insulin LISPRO 300 UNITS/3 ML VIAL SUBQ SCH ×4 (07:35→20:15)
[2021-12-17] MEDS: D5% in Water 1,000 ML IVC SCH ×2 (07:35→09:46)
[2021-12-17 08:09] LABS: BUN/Creatinine Ratio 18 (6-26); Blood Urea Nitrogen 9 mg/dL (8-23); Calcium 7.7 mg/dL (8.6-10.3); Carbon Dioxide 27 mEq/L (23-29); Chloride 88 mEq/L (98-107); Glucose 229 mg/dL (70-105); Osmolality,Calculated 260 (280-300); Potassium 3.5 mEq/L (3.5-5.1); Sodium 122 mEq/L (136-145); eGFR For African Americans > 60 (> 60); eGFR For Non-African Americans > 60 (> 60)
[2021-12-17] MEDS: Beer can PO SCH ×2 (08:23→11:02)
[2021-12-17 10:54] LABS: BUN/Creatinine Ratio 19 (6-26); Blood Urea Nitrogen 9 mg/dL (8-23); Calcium 7.8 mg/dL (8.6-10.3); Carbon Dioxide 32 mEq/L (23-29); Chloride 87 mEq/L (98-107); Glucose 110 mg/dL (70-105); Osmolality,Calculated 255 (280-300); Potassium 3.8 mEq/L (3.5-5.1); Sodium 123 mEq/L (136-145); eGFR For African Americans > 60 (> 60); eGFR For Non-African Americans > 60 (> 60)
[2021-12-17 15:12] LABS: BUN/Creatinine Ratio 18 (6-26); Blood Urea Nitrogen 9 mg/dL (8-23); Calcium 7.6 mg/dL (8.6-10.3); Carbon Dioxide 31 mEq/L (23-29); Chloride 86 mEq/L (98-107); Glucose 192 mg/dL (70-105); Osmolality,Calculated 258 (280-300); Potassium 3.6 mEq/L (3.5-5.1); Sodium 122 mEq/L (136-145); eGFR For African Americans > 60 (> 60); eGFR For Non-African Americans > 60 (> 60)
[2021-12-17 19:31] LABS: BUN/Creatinine Ratio 16 (6-26); Blood Urea Nitrogen 9 mg/dL (8-23); Calcium 7.8 mg/dL (8.6-10.3); Carbon Dioxide 30 mEq/L (23-29); Chloride 87 mEq/L (98-107); Glucose 212 mg/dL (70-105); Osmolality,Calculated 261 (280-300); Potassium 3.5 mEq/L (3.5-5.1); Sodium 123 mEq/L (136-145); eGFR For African Americans > 60 (> 60); eGFR For Non-African Americans > 60 (> 60)
[2021-12-17 22:30] LABS: BUN/Creatinine Ratio 17 (6-26); Blood Urea Nitrogen 9 mg/dL (8-23); Calcium 7.5 mg/dL (8.6-10.3); Carbon Dioxide 29 mEq/L (23-29); Chloride 91 mEq/L (98-107); Glucose 168 mg/dL (70-105); Osmolality,Calculated 261 (280-300); Potassium 3.5 mEq/L (3.5-5.1); Sodium 124 mEq/L (136-145); eGFR For African Americans > 60 (> 60); eGFR For Non-African Americans > 60 (> 60)
[2021-12-18] MEDS: MethylPREDNISolone 40 MG/ML VIAL IVP SCH ×4 (01:57→23:41)
[2021-12-18] MEDS: Ipratropium/Albuterol Neb 3 ML IH SCH ×4 (03:41→23:09)
[2021-12-18 04:10] LABS: VBG Ionized Calcium 1.11 mmol/L (1.15-1.35)
[2021-12-18 04:11] LABS: Basophils # 0.1 K/mcL (0.0-0.2); Basophils % 0.3 %; Eosinophils % 0.1 %; Hematocrit 36.4 % (37.5-50.1); Hemoglobin 12.4 g/dL (12.9-16.9); Immature Granulocytes % 0.9 % (0-4); Lymphocytes # 0.8 K/mcL (0.6-4.6); Lymphocytes % 4.6 %; Mean Corpuscular HGB Conc 34.1 g/dL (31.6-35.5); Mean Corpuscular Hemoglobin 30.1 pg (28.0-33.3); Mean Corpuscular Volume 88.3 fL (83.0-100.0); Mean Platelet Volume 9.9 fL (9.4-12.4); Monocytes # 0.9 K/mcL (0.0-1.3); Monocytes % 5.3 %; Neutrophils # 15.1 K/mcL (1.6-8.9); Platelet Count 197 K/mcL (140-400); Red Blood Count 4.12 M/mcL (4.19-5.50); Red Cell Distribution Width 13.9 % (11.5-14.5); Segmented Neutrophils % 88.8 %
[2021-12-18 04:23] LABS: Magnesium 2.1 mg/dL (1.6-2.6)
[2021-12-18] MEDS: *HR* Heparin 5,000 UNIT/ML VIAL SQ SCH ×2 (05:07→18:11)
[2021-12-18] MEDS: Doxycycline 100 MG in 0.9 % Sodium Chloride Mini Bag 100 ML IVPB SCH ×2 (05:08→18:19)
[2021-12-18] MEDS ORDERED: Potassium Phosphate 44 MEQ in 0.9 % Sodium Chloride 250 ML IVPB PRN (05:55)
[2021-12-18 07:14] LABS: Basophils % 0.2 %; Eosinophils % 0.1 %; Hematocrit 36.6 % (37.5-50.1); Hemoglobin 12.4 g/dL (12.9-16.9); Immature Granulocytes % 0.9 % (0-4); Lymphocytes # 0.8 K/mcL (0.6-4.6); Lymphocytes % 4.8 %; Mean Corpuscular HGB Conc 33.9 g/dL (31.6-35.5); Mean Corpuscular Hemoglobin 29.9 pg (28.0-33.3); Mean Corpuscular Volume 88.2 fL (83.0-100.0); Mean Platelet Volume 10.2 fL (9.4-12.4); Monocytes # 0.8 K/mcL (0.0-1.3); Monocytes % 4.4 %; Neutrophils # 15.5 K/mcL (1.6-8.9); Platelet Count 208 K/mcL (140-400); Red Blood Count 4.15 M/mcL (4.19-5.50); Segmented Neutrophils % 89.6 %; White Blood Count 17.3 K/mcL (4.3-11.1)
[2021-12-18 07:35] LABS: BUN/Creatinine Ratio 23 (6-26); Blood Urea Nitrogen 10 mg/dL (8-23); Calcium 7.6 mg/dL (8.6-10.3); Carbon Dioxide 29 mEq/L (23-29); Chloride 92 mEq/L (98-107); Glucose 191 mg/dL (70-105); Osmolality,Calculated 262 (280-300); Sodium 124 mEq/L (136-145); eGFR For African Americans > 60 (> 60); eGFR For Non-African Americans > 60 (> 60)
[2021-12-18] MEDS: Pantoprazole 40 MG VIAL IVP SCH (07:45)
[2021-12-18] MEDS: Thiamine (B-1) 100 MG TABLET PO SCH (07:45)
[2021-12-18] MEDS: Vitamin B Complex/Vit C/Vit E 1 EACH TABLET PO SCH (07:45)
[2021-12-18] MEDS: Folic Acid 1 MG TABLET PO SCH (07:45)
[2021-12-18] MEDS: Piperacillin/Tazobactam 3.375 GM in 0.9 % Sodium Chloride Mini Bag 100 ML IVPB SCH ×3 (07:45→23:41)
[2021-12-18] MEDS: Insulin LISPRO 300 UNITS/3 ML VIAL SUBQ SCH ×4 (07:46→22:07)
[2021-12-18] MEDS: Nicotine 21 MG PATCH.TD24 TD SCH (08:18)
[2021-12-18] MEDS: D5% in Water 1,000 ML IVC SCH ×2 (09:10→23:42)
[2021-12-18 16:09] LABS: BUN/Creatinine Ratio 21 (6-26); Blood Urea Nitrogen 11 mg/dL (8-23); Calcium 7.6 mg/dL (8.6-10.3); Carbon Dioxide 29 mEq/L (23-29); Chloride 92 mEq/L (98-107); Glucose 250 mg/dL (70-105); Osmolality,Calculated 270 (280-300); Potassium 3.6 mEq/L (3.5-5.1); Sodium 126 mEq/L (136-145); eGFR For African Americans > 60 (> 60); eGFR For Non-African Americans > 60 (> 60)
[2021-12-18] MEDS: *HR* LORazepam 2 MG/ML VIAL IVP PRN (21:56)
[2021-12-19 01:50] LABS: Eosinophils % 0.2 %; Hematocrit 37.1 % (37.5-50.1); Hemoglobin 12.8 g/dL (12.9-16.9); Mean Corpuscular HGB Conc 34.5 g/dL (31.6-35.5)
[2021-12-19 01:52] LABS: Basophils # 0.1 K/mcL (0.0-0.2); Basophils % 0.4 %; Eosinophils # 0.1 K/mcL (0.0-0.6); Immature Granulocytes % 1.2 % (0-4); Lymphocytes # 1.4 K/mcL (0.6-4.6); Lymphocytes % 5.4 %; Mean Corpuscular Hemoglobin 30.6 pg (28.0-33.3); Mean Corpuscular Volume 88.8 fL (83.0-100.0); Mean Platelet Volume 9.7 fL (9.4-12.4); Monocytes # 1.4 K/mcL (0.0-1.3); Monocytes % 5.3 %; Neutrophils # 22.5 K/mcL (1.6-8.9); Platelet Count 205 K/mcL (140-400); Red Blood Count 4.18 M/mcL (4.19-5.50); Red Cell Distribution Width 13.9 % (11.5-14.5); Segmented Neutrophils % 87.5 %; White Blood Count 25.7 K/mcL (4.3-11.1)
[2021-12-19 02:09] LABS: Phosphorous 1.2 mg/dL (2.7-4.5)
[2021-12-19 02:47] LABS: Platelet Estimate Normal (Normal)
[2021-12-19] MEDS: Ipratropium/Albuterol Neb 3 ML IH SCH ×4 (03:49→21:40)
[2021-12-19] MEDS: Doxycycline 100 MG in 0.9 % Sodium Chloride Mini Bag 100 ML IVPB SCH ×2 (04:46→18:18)
[2021-12-19] MEDS: *HR* LORazepam 2 MG/ML VIAL IVP PRN ×2 (04:46→23:20)
[2021-12-19] MEDS: *HR* Heparin 5,000 UNIT/ML VIAL SQ SCH ×2 (04:50→18:19)
[2021-12-19] MEDS: Piperacillin/Tazobactam 3.375 GM in 0.9 % Sodium Chloride Mini Bag 100 ML IVPB SCH ×3 (08:54→23:19)
[2021-12-19] MEDS: Vitamin B Complex/Vit C/Vit E 1 EACH TABLET PO SCH (08:55)
[2021-12-19] MEDS: Insulin LISPRO 300 UNITS/3 ML VIAL SUBQ SCH ×4 (08:55→21:14)
[2021-12-19] MEDS: Nicotine 21 MG PATCH.TD24 TD SCH (08:55)
[2021-12-19] MEDS: Thiamine (B-1) 100 MG TABLET PO SCH (08:55)
[2021-12-19] MEDS: Folic Acid 1 MG TABLET PO SCH (08:55)
[2021-12-19] MEDS: Pantoprazole 40 MG VIAL IVP SCH (08:56)
[2021-12-19 09:15] LABS: BUN/Creatinine Ratio 30 (6-26); Blood Urea Nitrogen 12 mg/dL (8-23); Calcium 7.3 mg/dL (8.6-10.3); Carbon Dioxide 28 mEq/L (23-29); Chloride 96 mEq/L (98-107); Glucose 161 mg/dL (70-105); Osmolality,Calculated 267 (280-300); Potassium 3.6 mEq/L (3.5-5.1); Sodium 127 mEq/L (136-145); eGFR For African Americans > 60 (> 60); eGFR For Non-African Americans > 60 (> 60)
[2021-12-19] MEDS: MethylPREDNISolone 40 MG/ML VIAL IVP SCH ×2 (12:52→23:19)
[2021-12-20] MEDS: Piperacillin/Tazobactam 3.375 GM in 0.9 % Sodium Chloride Mini Bag 100 ML IVPB SCH ×3 (00:08→15:54)
[2021-12-20] MEDS: *HR* LORazepam 2 MG/ML VIAL IVP PRN (00:09)
[2021-12-20] MEDS: MethylPREDNISolone 40 MG/ML VIAL IVP SCH ×2 (00:09→11:51)
[2021-12-20] MEDS: Ipratropium/Albuterol Neb 3 ML IH SCH ×4 (04:05→21:18)
[2021-12-20] MEDS: Doxycycline 100 MG in 0.9 % Sodium Chloride Mini Bag 100 ML IVPB SCH ×2 (05:07→17:16)
[2021-12-20] MEDS: *HR* Heparin 5,000 UNIT/ML VIAL SQ SCH ×2 (05:08→17:16)
[2021-12-20 06:30] LABS: VBG Ionized Calcium 1.05 mmol/L (1.15-1.35)
[2021-12-20 06:51] LABS: Basophils # 0.1 K/mcL (0.0-0.2); Basophils % 0.2 %; Eosinophils # 0.1 K/mcL (0.0-0.6); Eosinophils % 0.2 %; Hematocrit 34.5 % (37.5-50.1); Hemoglobin 11.9 g/dL (12.9-16.9); Immature Granulocytes % 1.3 % (0-4); Lymphocytes # 1.5 K/mcL (0.6-4.6); Lymphocytes % 7.2 %; Mean Corpuscular HGB Conc 34.5 g/dL (31.6-35.5); Mean Corpuscular Hemoglobin 30.7 pg (28.0-33.3); Mean Corpuscular Volume 88.9 fL (83.0-100.0); Monocytes # 1.1 K/mcL (0.0-1.3); Monocytes % 5.2 %; Neutrophils # 17.4 K/mcL (1.6-8.9); Platelet Count 203 K/mcL (140-400); Red Blood Count 3.88 M/mcL (4.19-5.50); Red Cell Distribution Width 14.6 % (11.5-14.5); Segmented Neutrophils % 85.9 %; White Blood Count 20.3 K/mcL (4.3-11.1)
[2021-12-20 07:10] LABS: Magnesium 1.9 mg/dL (1.6-2.6); Phosphorous 2.5 mg/dL (2.7-4.5)
[2021-12-20 07:12] LABS: BUN/Creatinine Ratio 28 (6-26); Blood Urea Nitrogen 11 mg/dL (8-23); Calcium 7.5 mg/dL (8.6-10.3); Carbon Dioxide 25 mEq/L (23-29); Chloride 97 mEq/L (98-107); Glucose 140 mg/dL (70-105); Osmolality,Calculated 266 (280-300); Potassium 3.5 mEq/L (3.5-5.1); Sodium 127 mEq/L (136-145); eGFR For African Americans > 60 (> 60); eGFR For Non-African Americans > 60 (> 60)
[2021-12-20] MEDS: Insulin LISPRO 300 UNITS/3 ML VIAL SUBQ SCH ×4 (08:44→21:30)
[2021-12-20] MEDS: Vitamin B Complex/Vit C/Vit E 1 EACH TABLET PO SCH (08:56)
[2021-12-20] MEDS: Nicotine 21 MG PATCH.TD24 TD SCH (08:56)
[2021-12-20] MEDS: Pantoprazole 40 MG VIAL IVP SCH (08:56)
[2021-12-20] MEDS: Thiamine (B-1) 100 MG TABLET PO SCH (08:56)
[2021-12-20] MEDS: Folic Acid 1 MG TABLET PO SCH (08:56)
[2021-12-20] MEDS ORDERED: Calcium Gluconate 1gm/50mL 1 GM/50 ML BAG IVPB ONE (12:56)
[2021-12-20] MEDS: Gabapentin 400 MG CAPSULE PO SCH ×2 (15:54→21:52)
[2021-12-20] MEDS: hydrOXYzine pamoate 25 MG CAPSULE PO SCH ×2 (15:54→21:52)
[2021-12-21] MEDS: MethylPREDNISolone 40 MG/ML VIAL IVP SCH ×2 (00:32→13:23)
[2021-12-21] MEDS: Piperacillin/Tazobactam 3.375 GM in 0.9 % Sodium Chloride Mini Bag 100 ML IVPB SCH ×3 (00:33→16:58)
[2021-12-21] MEDS: Ipratropium/Albuterol Neb 3 ML IH SCH ×4 (04:14→21:33)
[2021-12-21 04:52] LABS: Basophils # 0.1 K/mcL (0.0-0.2); Basophils % 0.3 %; Eosinophils % 0.1 %; Hemoglobin 11.9 g/dL (12.9-16.9); Immature Granulocytes % 1.7 % (0-4); Lymphocytes # 0.6 K/mcL (0.6-4.6); Lymphocytes % 3.1 %; Mean Corpuscular Hemoglobin 30.2 pg (28.0-33.3); Mean Corpuscular Volume 88.8 fL (83.0-100.0); Mean Platelet Volume 9.9 fL (9.4-12.4); Monocytes # 0.5 K/mcL (0.0-1.3); Monocytes % 2.7 %; Neutrophils # 16.8 K/mcL (1.6-8.9); Platelet Count 225 K/mcL (140-400); Red Blood Count 3.94 M/mcL (4.19-5.50); Red Cell Distribution Width 14.7 % (11.5-14.5); Segmented Neutrophils % 92.1 %; White Blood Count 18.2 K/mcL (4.3-11.1)
[2021-12-21 05:10] LABS: VBG Ionized Calcium 1.11 mmol/L (1.15-1.35)
[2021-12-21 05:14] LABS: Magnesium 1.8 mg/dL (1.6-2.6); Phosphorous 3.1 mg/dL (2.7-4.5)
[2021-12-21] MEDS: *HR* Heparin 5,000 UNIT/ML VIAL SQ SCH ×2 (05:14→19:43)
[2021-12-21] MEDS: Doxycycline 100 MG in 0.9 % Sodium Chloride Mini Bag 100 ML IVPB SCH ×2 (05:14→19:42)
[2021-12-21 05:16] LABS: BUN/Creatinine Ratio 21 (6-26); Blood Urea Nitrogen 10 mg/dL (8-23); Calcium 7.6 mg/dL (8.6-10.3); Carbon Dioxide 24 mEq/L (23-29); Chloride 97 mEq/L (98-107); Glucose 222 mg/dL (70-105); Osmolality,Calculated 270 (280-300); Potassium 3.5 mEq/L (3.5-5.1); Sodium 127 mEq/L (136-145); eGFR For African Americans > 60 (> 60); eGFR For Non-African Americans > 60 (> 60)
[2021-12-21] MEDS ORDERED: Piperacillin/Tazobactam 3.375 GM VIAL ONE ×2 (09:15→09:44)
[2021-12-21] MEDS: Thiamine (B-1) 100 MG TABLET PO SCH (09:22)
[2021-12-21] MEDS: hydrOXYzine pamoate 25 MG CAPSULE PO SCH ×3 (09:22→19:43)
[2021-12-21] MEDS: Folic Acid 1 MG TABLET PO SCH (09:22)
[2021-12-21] MEDS: Vitamin B Complex/Vit C/Vit E 1 EACH TABLET PO SCH (09:22)
[2021-12-21] MEDS: Gabapentin 400 MG CAPSULE PO SCH ×3 (09:22→19:43)
[2021-12-21] MEDS: Insulin LISPRO 300 UNITS/3 ML VIAL SUBQ SCH ×4 (09:23→19:45)
[2021-12-21] MEDS: Pantoprazole 40 MG VIAL IVP SCH (09:42)
[2021-12-21] MEDS: Nicotine 21 MG PATCH.TD24 TD SCH (09:54)
[2021-12-21] MEDS ORDERED: E-Z-PAQUE (BARIUM SULF) SUSP 1 BOTTLE PO ONE (13:08)
[2021-12-21] MEDS ORDERED: E-Z-HD (BARIUM SULF) SUSPENSION PO ONE (13:08)
[2021-12-22] MEDS: Piperacillin/Tazobactam 3.375 GM in 0.9 % Sodium Chloride Mini Bag 100 ML IVPB SCH ×3 (00:12→15:47)
[2021-12-22] MEDS: MethylPREDNISolone 40 MG/ML VIAL IVP SCH ×2 (00:14→11:44)
[2021-12-22] MEDS: Ipratropium/Albuterol Neb 3 ML IH SCH ×4 (03:55→22:44)
[2021-12-22] MEDS: Doxycycline 100 MG in 0.9 % Sodium Chloride Mini Bag 100 ML IVPB SCH ×2 (06:16→18:46)
[2021-12-22] MEDS: *HR* Heparin 5,000 UNIT/ML VIAL SQ SCH ×2 (06:17→18:16)
[2021-12-22] MEDS: hydrOXYzine pamoate 25 MG CAPSULE PO SCH ×3 (08:16→21:52)
[2021-12-22] MEDS: Folic Acid 1 MG TABLET PO SCH (08:16)
[2021-12-22] MEDS: Thiamine (B-1) 100 MG TABLET PO SCH (08:16)
[2021-12-22] MEDS: Gabapentin 400 MG CAPSULE PO SCH ×3 (08:16→21:52)
[2021-12-22] MEDS: Vitamin B Complex/Vit C/Vit E 1 EACH TABLET PO SCH (08:16)
[2021-12-22] MEDS: Pantoprazole 40 MG VIAL IVP SCH (08:17)
[2021-12-22] MEDS: Insulin LISPRO 300 UNITS/3 ML VIAL SUBQ SCH ×4 (08:18→21:51)
[2021-12-22] MEDS: Nicotine 21 MG PATCH.TD24 TD SCH (08:21)
[2021-12-22 08:37] LABS: BUN/Creatinine Ratio 23 (6-26); Blood Urea Nitrogen 10 mg/dL (8-23); Calcium 7.8 mg/dL (8.6-10.3); Carbon Dioxide 27 mEq/L (23-29); Chloride 99 mEq/L (98-107); Glucose 186 mg/dL (70-105); Osmolality,Calculated 274 (280-300); Potassium 3.5 mEq/L (3.5-5.1); Sodium 130 mEq/L (136-145); eGFR For African Americans > 60 (> 60); eGFR For Non-African Americans > 60 (> 60)
[2021-12-23] MEDS: Piperacillin/Tazobactam 3.375 GM in 0.9 % Sodium Chloride Mini Bag 100 ML IVPB SCH ×3 (01:11→15:20)
[2021-12-23] MEDS: MethylPREDNISolone 40 MG/ML VIAL IVP SCH (01:12)
[2021-12-23] MEDS: Ipratropium/Albuterol Neb 3 ML IH SCH ×4 (03:37→22:33)
[2021-12-23] MEDS: Doxycycline 100 MG in 0.9 % Sodium Chloride Mini Bag 100 ML IVPB SCH ×2 (05:52→18:31)
[2021-12-23] MEDS: *HR* Heparin 5,000 UNIT/ML VIAL SQ SCH ×2 (05:52→18:30)
[2021-12-23 06:53] LABS: Basophils % 0.2 %; Eosinophils % 0.1 %; Hematocrit 35.9 % (37.5-50.1); Hemoglobin 12.1 g/dL (12.9-16.9); Immature Granulocytes % 0.8 % (0-4); Lymphocytes # 0.6 K/mcL (0.6-4.6); Lymphocytes % 3.3 %; Mean Corpuscular HGB Conc 33.7 g/dL (31.6-35.5); Mean Corpuscular Hemoglobin 30.3 pg (28.0-33.3); Mean Platelet Volume 10.1 fL (9.4-12.4); Monocytes # 0.5 K/mcL (0.0-1.3); Monocytes % 2.7 %; Neutrophils # 17.5 K/mcL (1.6-8.9); Platelet Count 299 K/mcL (140-400); Red Blood Count 3.99 M/mcL (4.19-5.50); Red Cell Distribution Width 15.3 % (11.5-14.5); Segmented Neutrophils % 92.9 %; White Blood Count 18.9 K/mcL (4.3-11.1)
[2021-12-23 07:13] LABS: BUN/Creatinine Ratio 29 (6-26); Blood Urea Nitrogen 12 mg/dL (8-23); Calcium 7.8 mg/dL (8.6-10.3); Carbon Dioxide 27 mEq/L (23-29); Chloride 100 mEq/L (98-107); Glucose 181 mg/dL (70-105); Osmolality,Calculated 274 (280-300); Potassium 3.8 mEq/L (3.5-5.1); Sodium 130 mEq/L (136-145); eGFR For African Americans > 60 (> 60); eGFR For Non-African Americans > 60 (> 60)
[2021-12-23] MEDS: Insulin LISPRO 300 UNITS/3 ML VIAL SUBQ SCH ×4 (07:42→20:38)
[2021-12-23] MEDS: Nicotine 21 MG PATCH.TD24 TD SCH (09:12)
[2021-12-23] MEDS: Vitamin B Complex/Vit C/Vit E 1 EACH TABLET PO SCH (09:13)
[2021-12-23] MEDS: Thiamine (B-1) 100 MG TABLET PO SCH (09:13)
[2021-12-23] MEDS: Pantoprazole 40 MG VIAL IVP SCH (09:13)
[2021-12-23] MEDS: Gabapentin 400 MG CAPSULE PO SCH ×3 (09:13→21:32)
[2021-12-23] MEDS: hydrOXYzine pamoate 25 MG CAPSULE PO SCH ×3 (09:13→21:31)
[2021-12-23] MEDS: Folic Acid 1 MG TABLET PO SCH (09:13)
[2021-12-24] MEDS: Piperacillin/Tazobactam 3.375 GM in 0.9 % Sodium Chloride Mini Bag 100 ML IVPB SCH ×3 (01:24→16:37)
[2021-12-24 01:32] LABS: Basophils # 0.1 K/mcL (0.0-0.2); Basophils % 0.3 %; Eosinophils # 0.1 K/mcL (0.0-0.6); Eosinophils % 0.4 %; Hematocrit 38.1 % (37.5-50.1); Hemoglobin 12.7 g/dL (12.9-16.9); Immature Granulocytes % 1.1 % (0-4); Lymphocytes # 1.5 K/mcL (0.6-4.6); Lymphocytes % 6.5 %; Mean Corpuscular HGB Conc 33.3 g/dL (31.6-35.5); Mean Corpuscular Hemoglobin 30.5 pg (28.0-33.3); Mean Corpuscular Volume 91.6 fL (83.0-100.0); Mean Platelet Volume 9.8 fL (9.4-12.4); Monocytes # 0.9 K/mcL (0.0-1.3); Monocytes % 3.8 %; Neutrophils # 20.8 K/mcL (1.6-8.9); Platelet Count 280 K/mcL (140-400); Red Blood Count 4.16 M/mcL (4.19-5.50); Red Cell Distribution Width 15.3 % (11.5-14.5); Segmented Neutrophils % 87.9 %; White Blood Count 23.6 K/mcL (4.3-11.1)
[2021-12-24 01:53] LABS: BUN/Creatinine Ratio 32 (6-26); Blood Urea Nitrogen 13 mg/dL (8-23); Calcium 7.7 mg/dL (8.6-10.3); Carbon Dioxide 25 mEq/L (23-29); Chloride 99 mEq/L (98-107); Glucose 108 mg/dL (70-105); Osmolality,Calculated 269 (280-300); Potassium 3.8 mEq/L (3.5-5.1); Sodium 129 mEq/L (136-145); eGFR For African Americans > 60 (> 60); eGFR For Non-African Americans > 60 (> 60)
[2021-12-24] MEDS: Ipratropium/Albuterol Neb 3 ML IH SCH ×4 (03:30→22:23)
[2021-12-24] MEDS: *HR* Heparin 5,000 UNIT/ML VIAL SQ SCH ×2 (05:17→18:08)
[2021-12-24] MEDS: Doxycycline 100 MG in 0.9 % Sodium Chloride Mini Bag 100 ML IVPB SCH ×2 (05:20→18:08)
[2021-12-24 06:59] LABS: Adenovirus Not Detected (Not Detect); Coronavirus 229E Not Detected (Not Detect); Coronavirus HKU1 Not Detected (Not Detect); Coronavirus NL63 Not Detected (Not Detect); Coronavirus OC43 Not Detected (Not Detect); Human Metapneumovirus Not Detected (Not Detect); SARS-CoV-2 Not Detected (Not Detect)
[2021-12-24 07:00] LABS: Bordetella Pertussis Not Detected (Not Detect); Chlamydophila pneumoniae Not Detected (Not Detect); Human Rhinovirus/Enterovirus Not Detected (Not Detect); Influenza A Subtype 2009 H1 Not Detected (Not Detect); Influenza B Not Detected (Not Detect); Mycoplasma pneumoniae Not Detected (Not Detect); Parainfluenza Virus 1 Not Detected (Not Detect); Parainfluenza Virus 2 Not Detected (Not Detect); Parainfluenza Virus 3 Not Detected (Not Detect); Parainfluenza Virus 4 Not Detected (Not Detect); Respiratory Syncytial Virus Not Detected (Not Detect)
[2021-12-24 07:54] LABS: ABG Base Excess 3 mEq/L (-2 to 3); ABG HCO3 27 mEq/L (21-27); ABG Oxygen Saturation 100 % (95-98); ABG PCO2 39 mmHg (35-45); ABG PH 7.45 pH Units (7.32-7.45); ABG PO2 191 mmHg (85-104); ABG TCO2 28 mEq/L (20-26)
[2021-12-24] MEDS: Insulin LISPRO 300 UNITS/3 ML VIAL SUBQ SCH ×3 (09:22→21:33)
[2021-12-24] MEDS: Nicotine 21 MG PATCH.TD24 TD SCH (09:24)
[2021-12-24] MEDS: Gabapentin 400 MG CAPSULE PO SCH ×3 (09:24→21:29)
[2021-12-24] MEDS: Folic Acid 1 MG TABLET PO SCH (09:24)
[2021-12-24] MEDS: hydrOXYzine pamoate 25 MG CAPSULE PO SCH ×3 (09:25→21:29)
[2021-12-24] MEDS: Vitamin B Complex/Vit C/Vit E 1 EACH TABLET PO SCH (09:25)
[2021-12-24] MEDS: Pantoprazole 40 MG VIAL IVP SCH (09:25)
[2021-12-24] MEDS: Thiamine (B-1) 100 MG TABLET PO SCH (09:26)
[2021-12-24] MEDS: Furosemide 40 MG/4 ML VIAL IVP SCH (09:26)
[2021-12-24] MEDS ORDERED: Perflutren Lipid Microsphere 1.3 ML in 0.9 % Sodium Chloride 8.7 ML IVP PRN (10:08)
[2021-12-24] MEDS ORDERED: Saline Nasal Spray 44 ML BOTTLE NS PRN (19:50)
[2021-12-24 22:38] LABS: ABG Base Excess 4 mEq/L (-2 to 3); ABG HCO3 27 mEq/L (21-27); ABG Oxygen Saturation 96 % (95-98); ABG PCO2 32 mmHg (35-45); ABG PH 7.53 pH Units (7.32-7.45); ABG PO2 69 mmHg (85-104); ABG TCO2 28 mEq/L (20-26); Blood Gas Modality HFOT
[2021-12-25] MEDS: Piperacillin/Tazobactam 3.375 GM in 0.9 % Sodium Chloride Mini Bag 100 ML IVPB SCH ×3 (00:39→17:43)
[2021-12-25] MEDS: *HR* Dextrose 50 % in Water (Syg) 50 ML SYRINGE IVP PRN ×2 (01:18→03:20)
[2021-12-25] MEDS ORDERED: 0.9 % Sodium Chloride 500 ML ONE (01:47)
[2021-12-25] MEDS ORDERED: 0.9 % Sodium Chloride 500 ML IVC PRN ×2 (01:48→01:56)
[2021-12-25 02:18] LABS: ABG Base Excess 4 mEq/L (-2 to 3); ABG HCO3 27 mEq/L (21-27); ABG Oxygen Saturation 96 % (95-98); ABG PCO2 37 mmHg (35-45); ABG PH 7.48 pH Units (7.32-7.45); ABG PO2 74 mmHg (85-104); ABG TCO2 29 mEq/L (20-26); Blood Gas Pressure Support 8 cm H2O
[2021-12-25 02:42] LABS: Hemoglobin 12.2 g/dL (12.9-16.9)
[2021-12-25 02:44] LABS: Basophils # 0.1 K/mcL (0.0-0.2); Basophils % 0.3 %; Eosinophils # 0.1 K/mcL (0.0-0.6); Eosinophils % 0.3 %; Immature Granulocytes % 1.3 % (0-4); Lymphocytes # 0.9 K/mcL (0.6-4.6); Lymphocytes % 3.3 %; Mean Corpuscular HGB Conc 33.9 g/dL (31.6-35.5); Mean Corpuscular Hemoglobin 30.2 pg (28.0-33.3); Mean Corpuscular Volume 89.1 fL (83.0-100.0); Mean Platelet Volume 9.6 fL (9.4-12.4); Monocytes # 0.8 K/mcL (0.0-1.3); Monocytes % 2.7 %; Neutrophils # 25.5 K/mcL (1.6-8.9); Platelet Count 269 K/mcL (140-400); Red Blood Count 4.04 M/mcL (4.19-5.50); Red Cell Distribution Width 15.3 % (11.5-14.5); Segmented Neutrophils % 92.1 %; White Blood Count 27.7 K/mcL (4.3-11.1)
[2021-12-25 03:17] LABS: BUN/Creatinine Ratio 33 (6-26); Blood Urea Nitrogen 13 mg/dL (8-23); Calcium 7.6 mg/dL (8.6-10.3); Carbon Dioxide 27 mEq/L (23-29); Chloride 100 mEq/L (98-107); Glucose 74 mg/dL (70-105); Magnesium 1.6 mg/dL (1.6-2.6); Osmolality,Calculated 275 (280-300); Phosphorous 3.4 mg/dL (2.7-4.5); Potassium 2.8 mEq/L (3.5-5.1); Sodium 133 mEq/L (136-145); eGFR For African Americans > 60 (> 60); eGFR For Non-African Americans > 60 (> 60)
[2021-12-25] MEDS: Ipratropium/Albuterol Neb 3 ML IH SCH ×4 (04:41→21:51)
[2021-12-25] MEDS: *HR* Heparin 5,000 UNIT/ML VIAL SQ SCH (05:08)
[2021-12-25] MEDS: Doxycycline 100 MG in 0.9 % Sodium Chloride Mini Bag 100 ML IVPB SCH ×2 (05:10→17:44)
[2021-12-25] MEDS: Insulin LISPRO 300 UNITS/3 ML VIAL SUBQ SCH (07:32)
[2021-12-25] MEDS ORDERED: Isovue-370 500 ML BOTTLE IVP ONE (08:42)
[2021-12-25] MEDS: Nicotine 21 MG PATCH.TD24 TD SCH (10:19)
[2021-12-25] MEDS: Folic Acid 1 MG TABLET PO SCH (10:20)
[2021-12-25] MEDS: Furosemide 40 MG/4 ML VIAL IVP SCH ×2 (10:20→17:45)
[2021-12-25] MEDS: Pantoprazole 40 MG VIAL IVP SCH (10:20)
[2021-12-25] MEDS: hydrOXYzine pamoate 25 MG CAPSULE PO SCH ×3 (10:21→21:29)
[2021-12-25] MEDS: Vitamin B Complex/Vit C/Vit E 1 EACH TABLET PO SCH (10:21)
[2021-12-25] MEDS: Thiamine (B-1) 100 MG TABLET PO SCH (10:21)
[2021-12-25] MEDS ORDERED: *HR* Heparin 5,000 UNIT/ML VIAL IVP ONE (10:34)
[2021-12-25] MEDS: Heparin 25,000UNIT/250ML 1/2NS 25,000 UNIT/250 ML IV.SOLN IVC SCH (12:39)
[2021-12-25 13:27] LABS: Hematocrit 42.5 % (37.5-50.1); Hemoglobin 14.3 g/dL (12.9-16.9); Mean Corpuscular HGB Conc 33.6 g/dL (31.6-35.5); Mean Corpuscular Hemoglobin 30.1 pg (28.0-33.3); Mean Corpuscular Volume 89.5 fL (83.0-100.0); Mean Platelet Volume 9.7 fL (9.4-12.4); Platelet Count 282 K/mcL (140-400); Red Blood Count 4.75 M/mcL (4.19-5.50); Red Cell Distribution Width 15.6 % (11.5-14.5)
[2021-12-25 13:37] LABS: Heparin anti-factor XA UFH 0.85 IU/mL (0.30-0.70); INR 1.8; Prothrombin Time 19.7 Seconds (9.4-12.1)
[2021-12-25] MEDS: *HR* Heparin 5,000 UNIT/ML VIAL IVP PRN (22:27)
[2021-12-26] MEDS: Piperacillin/Tazobactam 3.375 GM in 0.9 % Sodium Chloride Mini Bag 100 ML IVPB SCH ×4 (01:08→22:58)
[2021-12-26] MEDS: Ipratropium/Albuterol Neb 3 ML IH SCH ×4 (04:07→20:04)
[2021-12-26] MEDS: Doxycycline 100 MG in 0.9 % Sodium Chloride Mini Bag 100 ML IVPB SCH ×2 (06:27→17:21)
[2021-12-26] MEDS: *HR* Heparin 5,000 UNIT/ML VIAL IVP PRN ×2 (06:27→21:43)
[2021-12-26] MEDS: Furosemide 40 MG/4 ML VIAL IVP SCH ×2 (07:42→17:22)
[2021-12-26] MEDS: Pantoprazole 40 MG VIAL IVP SCH (07:43)
[2021-12-26] MEDS: hydrOXYzine pamoate 25 MG CAPSULE PO SCH ×3 (07:43→20:32)
[2021-12-26] MEDS: Nicotine 21 MG PATCH.TD24 TD SCH (07:43)
[2021-12-26] MEDS: Folic Acid 1 MG TABLET PO SCH (07:43)
[2021-12-26] MEDS: Vitamin B Complex/Vit C/Vit E 1 EACH TABLET PO SCH (07:44)
[2021-12-26] MEDS: Thiamine (B-1) 100 MG TABLET PO SCH (07:44)
[2021-12-26] MEDS: Heparin 25,000UNIT/250ML 1/2NS 25,000 UNIT/250 ML IV.SOLN IVC SCH (15:02)
[2021-12-26] MEDS: Ondansetron 4 MG/2 ML VIAL IVP PRN (20:34)
[2021-12-27 02:13] LABS: Basophils % 0.2 %; Eosinophils # 0.1 K/mcL (0.0-0.6); Eosinophils % 0.6 %; Hematocrit 34.2 % (37.5-50.1); Immature Granulocytes % 0.7 % (0-4); Lymphocytes # 1.5 K/mcL (0.6-4.6); Mean Corpuscular HGB Conc 33.9 g/dL (31.6-35.5); Mean Corpuscular Hemoglobin 30.1 pg (28.0-33.3); Mean Corpuscular Volume 88.8 fL (83.0-100.0); Mean Platelet Volume 10.3 fL (9.4-12.4); Monocytes # 0.6 K/mcL (0.0-1.3); Monocytes % 2.9 %; Neutrophils # 19.2 K/mcL (1.6-8.9); Platelet Count 303 K/mcL (140-400); Red Blood Count 3.85 M/mcL (4.19-5.50); Red Cell Distribution Width 15.3 % (11.5-14.5); Segmented Neutrophils % 88.6 %; White Blood Count 21.7 K/mcL (4.3-11.1)
[2021-12-27] MEDS ORDERED: 0.9 % Sodium Chloride 1,000 ML IV ONE (02:20)
[2021-12-27 02:22] LABS: Hemoglobin 11.6 g/dL (12.9-16.9)
[2021-12-27 02:23] LABS: BUN/Creatinine Ratio 26 (6-26); Blood Urea Nitrogen 10 mg/dL (8-23); Calcium 7.6 mg/dL (8.6-10.3); Carbon Dioxide 32 mEq/L (23-29); Chloride 94 mEq/L (98-107); Glucose 121 mg/dL (70-105); Osmolality,Calculated 274 (280-300); Potassium 2.6 mEq/L (3.5-5.1); Sodium 132 mEq/L (136-145); eGFR For African Americans > 60 (> 60); eGFR For Non-African Americans > 60 (> 60)
[2021-12-27] MEDS: Ipratropium/Albuterol Neb 3 ML IH SCH ×4 (04:31→22:33)
[2021-12-27] MEDS: Doxycycline 100 MG in 0.9 % Sodium Chloride Mini Bag 100 ML IVPB SCH ×2 (05:41→17:51)
[2021-12-27] MEDS: Furosemide 40 MG/4 ML VIAL IVP SCH ×2 (08:36→16:18)
[2021-12-27] MEDS: Piperacillin/Tazobactam 3.375 GM in 0.9 % Sodium Chloride Mini Bag 100 ML IVPB SCH ×2 (08:42→15:04)
[2021-12-27] MEDS: Nicotine 21 MG PATCH.TD24 TD SCH (08:43)
[2021-12-27] MEDS: Thiamine (B-1) 100 MG TABLET PO SCH (08:43)
[2021-12-27] MEDS: Folic Acid 1 MG TABLET PO SCH (08:43)
[2021-12-27] MEDS: hydrOXYzine pamoate 25 MG CAPSULE PO SCH ×3 (08:43→20:22)
[2021-12-27] MEDS: Vitamin B Complex/Vit C/Vit E 1 EACH TABLET PO SCH (08:43)
[2021-12-27] MEDS: Heparin 25,000UNIT/250ML 1/2NS 25,000 UNIT/250 ML IV.SOLN IVC SCH (10:07)
[2021-12-28] MEDS: Piperacillin/Tazobactam 3.375 GM in 0.9 % Sodium Chloride Mini Bag 100 ML IVPB SCH ×3 (00:20→15:59)
[2021-12-28] MEDS: Ipratropium/Albuterol Neb 3 ML IH SCH ×4 (03:52→22:08)
[2021-12-28] MEDS: Doxycycline 100 MG in 0.9 % Sodium Chloride Mini Bag 100 ML IVPB SCH ×2 (06:22→16:43)
[2021-12-28] MEDS: Folic Acid 1 MG TABLET PO SCH (09:07)
[2021-12-28] MEDS: Thiamine (B-1) 100 MG TABLET PO SCH (09:07)
[2021-12-28] MEDS: hydrOXYzine pamoate 25 MG CAPSULE PO SCH ×3 (09:07→20:43)
[2021-12-28] MEDS: Furosemide 40 MG/4 ML VIAL IVP SCH ×2 (09:07→15:58)
[2021-12-28] MEDS: Nicotine 21 MG PATCH.TD24 TD SCH (09:07)
[2021-12-28] MEDS: Vitamin B Complex/Vit C/Vit E 1 EACH TABLET PO SCH (09:09)
[2021-12-28 10:25] LABS: ABG Base Excess 10 mEq/L (-2 to 3); ABG HCO3 36 mEq/L (21-27); ABG Oxygen Saturation 97 % (95-98); ABG PCO2 51 mmHg (35-45); ABG PH 7.46 pH Units (7.32-7.45); ABG PO2 84 mmHg (85-104); ABG TCO2 38 mEq/L (20-26)
[2021-12-28 12:19] LABS: Basophils # 0.1 K/mcL (0.0-0.2); Basophils % 0.4 %; Eosinophils # 0.1 K/mcL (0.0-0.6); Eosinophils % 0.7 %; Hematocrit 38.6 % (37.5-50.1); Immature Granulocytes % 0.8 % (0-4); Lymphocytes # 1.1 K/mcL (0.6-4.6); Lymphocytes % 5.1 %; Mean Corpuscular HGB Conc 33.7 g/dL (31.6-35.5); Mean Corpuscular Hemoglobin 30.2 pg (28.0-33.3); Mean Corpuscular Volume 89.6 fL (83.0-100.0); Mean Platelet Volume 9.9 fL (9.4-12.4); Monocytes # 0.7 K/mcL (0.0-1.3); Monocytes % 3.3 %; Neutrophils # 19.3 K/mcL (1.6-8.9); Platelet Count 300 K/mcL (140-400); Red Blood Count 4.31 M/mcL (4.19-5.50); Red Cell Distribution Width 15.4 % (11.5-14.5); Segmented Neutrophils % 89.7 %; White Blood Count 21.5 K/mcL (4.3-11.1)
[2021-12-28 12:42] LABS: BUN/Creatinine Ratio 30 (6-26); Blood Urea Nitrogen 11 mg/dL (8-23); Calcium 8.5 mg/dL (8.6-10.3); Carbon Dioxide 37 mEq/L (23-29); Chloride 92 mEq/L (98-107); Glucose 144 mg/dL (70-105); Osmolality,Calculated 280 (280-300); Potassium 3.3 mEq/L (3.5-5.1); Sodium 134 mEq/L (136-145); eGFR For African Americans > 60 (> 60); eGFR For Non-African Americans > 60 (> 60)
[2021-12-28] MEDS: *HR* Heparin 5,000 UNIT/ML VIAL IVP PRN ×2 (12:43→22:34)
[2021-12-28] MEDS: Miconazole 2% ointment 141 APPL/141 GM TUBE TP SCH (20:45)
[2021-12-29] MEDS: Ipratropium/Albuterol Neb 3 ML IH SCH ×4 (03:40→22:55)
[2021-12-29 05:49] LABS: BUN/Creatinine Ratio 33 (6-26); Blood Urea Nitrogen 12 mg/dL (8-23); Carbon Dioxide 33 mEq/L (23-29); Chloride 93 mEq/L (98-107); Glucose 143 mg/dL (70-105); Osmolality,Calculated 274 (280-300); Potassium 3.1 mEq/L (3.5-5.1); Sodium 131 mEq/L (136-145); eGFR For African Americans > 60 (> 60); eGFR For Non-African Americans > 60 (> 60)
[2021-12-29 05:55] LABS: Basophils # 0.1 K/mcL (0.0-0.2); Basophils % 0.3 %; Eosinophils # 0.1 K/mcL (0.0-0.6); Eosinophils % 0.6 %; Hematocrit 35.1 % (37.5-50.1); Hemoglobin 11.9 g/dL (12.9-16.9); Immature Granulocytes % 0.6 % (0-4); Lymphocytes # 1.8 K/mcL (0.6-4.6); Mean Corpuscular HGB Conc 33.9 g/dL (31.6-35.5); Mean Corpuscular Hemoglobin 30.3 pg (28.0-33.3); Mean Corpuscular Volume 89.3 fL (83.0-100.0); Monocytes # 0.8 K/mcL (0.0-1.3); Monocytes % 3.8 %; Neutrophils # 17.5 K/mcL (1.6-8.9); Platelet Count 215 K/mcL (140-400); Red Blood Count 3.93 M/mcL (4.19-5.50); Red Cell Distribution Width 15.4 % (11.5-14.5); Segmented Neutrophils % 85.7 %; White Blood Count 20.4 K/mcL (4.3-11.1)
[2021-12-29] MEDS: Doxycycline 100 MG in 0.9 % Sodium Chloride Mini Bag 100 ML IVPB SCH ×2 (05:57→17:39)
[2021-12-29] MEDS: Nicotine 21 MG PATCH.TD24 TD SCH (08:15)
[2021-12-29] MEDS: hydrOXYzine pamoate 25 MG CAPSULE PO SCH ×3 (08:16→20:25)
[2021-12-29] MEDS: Folic Acid 1 MG TABLET PO SCH (08:16)
[2021-12-29] MEDS: Furosemide 40 MG/4 ML VIAL IVP SCH (08:16)
[2021-12-29] MEDS: Thiamine (B-1) 100 MG TABLET PO SCH (08:16)
[2021-12-29] MEDS: Vitamin B Complex/Vit C/Vit E 1 EACH TABLET PO SCH (08:16)
[2021-12-29] MEDS: Miconazole 2% ointment 141 APPL/141 GM TUBE TP SCH ×2 (08:33→20:26)
[2021-12-29] MEDS: *HR* Heparin 5,000 UNIT/ML VIAL IVP PRN ×2 (11:04→15:35)
[2021-12-29] MEDS ORDERED: Piperacillin/Tazobactam 3.375 GM in 0.9 % Sodium Chloride Mini Bag 100 ML IVPB SCH (16:00)
[2021-12-29] MEDS: Heparin 25,000UNIT/250ML 1/2NS 25,000 UNIT/250 ML IV.SOLN IVC SCH (20:25)
[2021-12-29] MEDS ORDERED: Magnesium Sulfate 1 GM/102 ML PIGGYBACK IVPB ONE (20:48)
[2021-12-30] MEDS: Ipratropium/Albuterol Neb 3 ML IH SCH ×4 (04:11→22:01)
[2021-12-30 04:14] LABS: ABG Base Excess 6 mEq/L (-2 to 3); ABG HCO3 29 mEq/L (21-27); ABG Oxygen Saturation 94 % (95-98); ABG PCO2 35 mmHg (35-45); ABG PH 7.53 pH Units (7.32-7.45); ABG PO2 61 mmHg (85-104); ABG TCO2 30 mEq/L (20-26)
[2021-12-30 06:15] LABS: Basophils # 0.1 K/mcL (0.0-0.2); Basophils % 0.4 %; Eosinophils # 0.3 K/mcL (0.0-0.6); Eosinophils % 1.5 %; Hemoglobin 12.3 g/dL (12.9-16.9); Immature Granulocytes % 0.5 % (0-4); Lymphocytes # 1.6 K/mcL (0.6-4.6); Lymphocytes % 9.9 %; Mean Corpuscular HGB Conc 33.2 g/dL (31.6-35.5); Mean Corpuscular Hemoglobin 29.9 pg (28.0-33.3); Mean Platelet Volume 10.2 fL (9.4-12.4); Monocytes # 0.7 K/mcL (0.0-1.3); Monocytes % 4.5 %; Neutrophils # 13.7 K/mcL (1.6-8.9); Platelet Count 311 K/mcL (140-400); Red Blood Count 4.11 M/mcL (4.19-5.50); Red Cell Distribution Width 15.9 % (11.5-14.5); Segmented Neutrophils % 83.2 %; White Blood Count 16.5 K/mcL (4.3-11.1)
[2021-12-30 06:35] LABS: Alanine Aminotransferase 21 Units/L (7-52); Albumin 2.6 g/dL (3.5-5.7); Albumin/Globulin Ratio 0.8 (1.1-2.2); Alkaline Phosphatase 69 Units/L (34-104); Aspartate Amino Transferase 34 Units/L (13-39); BUN/Creatinine Ratio 27 (6-26); Bilirubin,Total 0.4 mg/dL (0.3-1.0); Blood Urea Nitrogen 12 mg/dL (8-23); Calcium 8.4 mg/dL (8.6-10.3); Carbon Dioxide 29 mEq/L (23-29); Chloride 101 mEq/L (98-107); Globulin 3.2 g/dL (2.4-3.5); Glucose 141 mg/dL (70-105); Magnesium 1.8 mg/dL (1.6-2.6); Osmolality,Calculated 280 (280-300); Phosphorous 1.8 mg/dL (2.7-4.5); Potassium 3.9 mEq/L (3.5-5.1); Sodium 134 mEq/L (136-145); Total Protein 5.8 g/dL (6.4-8.9); eGFR For African Americans > 60 (> 60); eGFR For Non-African Americans > 60 (> 60)
[2021-12-30] MEDS: *HR* Heparin 5,000 UNIT/ML VIAL IVP PRN ×2 (06:59→20:31)
[2021-12-30] MEDS: Nicotine 21 MG PATCH.TD24 TD SCH (10:00)
[2021-12-30] MEDS: Furosemide 40 MG/4 ML VIAL IVP SCH (10:08)
[2021-12-30] MEDS: Folic Acid 1 MG TABLET PO SCH (11:33)
[2021-12-30] MEDS: Vitamin B Complex/Vit C/Vit E 1 EACH TABLET PO SCH (11:34)
[2021-12-30] MEDS: Thiamine (B-1) 100 MG TABLET PO SCH (11:34)
[2021-12-30] MEDS: Heparin 25,000UNIT/250ML 1/2NS 25,000 UNIT/250 ML IV.SOLN IVC SCH (12:23)
[2021-12-30] MEDS: hydrOXYzine pamoate 25 MG CAPSULE PO SCH ×3 (12:25→20:14)
[2021-12-30] MEDS: Doxycycline 100 MG CAPSULE PO SCH ×2 (12:26→20:14)
[2021-12-30] MEDS: Acetaminophen 325 MG TABLET PO PRN (13:54)
[2021-12-30] MEDS: Gabapentin 300 MG CAPSULE PO SCH ×2 (13:54→20:14)
[2021-12-30] MEDS: Miconazole 2% ointment 141 APPL/141 GM TUBE TP SCH ×2 (13:55→20:36)
[2021-12-31] MEDS: MethylPREDNISolone 40 MG/ML VIAL IVP SCH ×4 (00:13→23:21)
[2021-12-31] MEDS: Heparin 25,000UNIT/250ML 1/2NS 25,000 UNIT/250 ML IV.SOLN IVC SCH ×2 (01:32→15:26)
[2021-12-31 01:53] LABS: Basophils # 0.1 K/mcL (0.0-0.2); Basophils % 0.4 %; Eosinophils # 0.6 K/mcL (0.0-0.6); Eosinophils % 4.5 %; Hematocrit 36.3 % (37.5-50.1); Immature Granulocytes % 0.5 % (0-4); Lymphocytes % 7.4 %; Mean Corpuscular HGB Conc 33.1 g/dL (31.6-35.5); Mean Corpuscular Hemoglobin 29.3 pg (28.0-33.3); Mean Corpuscular Volume 88.8 fL (83.0-100.0); Monocytes # 0.5 K/mcL (0.0-1.3); Monocytes % 3.7 %; Neutrophils # 11.7 K/mcL (1.6-8.9); Platelet Count 322 K/mcL (140-400); Red Blood Count 4.09 M/mcL (4.19-5.50); Segmented Neutrophils % 83.5 %
[2021-12-31 02:08] LABS: BUN/Creatinine Ratio 30 (6-26); Blood Urea Nitrogen 13 mg/dL (8-23); Calcium 8.4 mg/dL (8.6-10.3); Carbon Dioxide 27 mEq/L (23-29); Chloride 100 mEq/L (98-107); Glucose 127 mg/dL (70-105); Osmolality,Calculated 276 (280-300); Potassium 4.3 mEq/L (3.5-5.1); Sodium 132 mEq/L (136-145); eGFR For African Americans > 60 (> 60); eGFR For Non-African Americans > 60 (> 60)
[2021-12-31] MEDS: Ipratropium/Albuterol Neb 3 ML IH SCH ×4 (04:04→22:53)
[2021-12-31] MEDS: Doxycycline 100 MG CAPSULE PO SCH (08:47)
[2021-12-31] MEDS: Thiamine (B-1) 100 MG TABLET PO SCH (08:48)
[2021-12-31] MEDS: Folic Acid 1 MG TABLET PO SCH (08:48)
[2021-12-31] MEDS: Gabapentin 300 MG CAPSULE PO SCH ×3 (08:48→20:18)
[2021-12-31] MEDS: Vitamin B Complex/Vit C/Vit E 1 EACH TABLET PO SCH (08:48)
[2021-12-31] MEDS: hydrOXYzine pamoate 25 MG CAPSULE PO SCH ×3 (08:48→20:20)
[2021-12-31] MEDS: Nicotine 21 MG PATCH.TD24 TD SCH (08:49)
[2021-12-31] MEDS: Furosemide 40 MG/4 ML VIAL IVP SCH (09:44)
[2021-12-31] MEDS: Miconazole 2% ointment 141 APPL/141 GM TUBE TP SCH ×2 (09:44→20:18)
[2021-12-31 12:22] LABS: ABG Base Excess 3 mEq/L (-2 to 3); ABG HCO3 29 mEq/L (21-27); ABG Oxygen Saturation 100 % (95-98); ABG PCO2 52 mmHg (35-45); ABG PH 7.36 pH Units (7.32-7.45); ABG PO2 468 mmHg (85-104); ABG TCO2 31 mEq/L (20-26)
[2021-12-31] MEDS ORDERED: D5% in Water 1,000 ML IVC PRN (12:23)
[2021-12-31] MEDS ORDERED: *HR* Dextrose 50 % in Water (Syg) 50 ML SYRINGE IVP PRN (12:23)
[2021-12-31] MEDS ORDERED: Dextrose Gel 15 GM/37.5 ML TUBE PO PRN ×2 (12:23)
[2021-12-31 15:06] LABS: Estimated Average Glucose 146 mg/dl; Hemoglobin A1C 6.7 %
[2021-12-31] MEDS: Insulin LISPRO 300 UNITS/3 ML VIAL SUBQ SCH ×2 (16:29→20:19)
[2022-01-01] MEDS: Ipratropium/Albuterol Neb 3 ML IH SCH ×4 (04:16→22:58)
[2022-01-01 04:31] LABS: Basophils % 0.1 %; Eosinophils % 0.1 %; Hematocrit 34.8 % (37.5-50.1); Immature Granulocytes % 0.5 % (0-4); Lymphocytes # 1.1 K/mcL (0.6-4.6); Lymphocytes % 5.9 %; Mean Corpuscular HGB Conc 34.5 g/dL (31.6-35.5); Mean Corpuscular Hemoglobin 30.8 pg (28.0-33.3); Mean Corpuscular Volume 89.2 fL (83.0-100.0); Mean Platelet Volume 10.5 fL (9.4-12.4); Monocytes # 0.6 K/mcL (0.0-1.3); Monocytes % 3.3 %; Neutrophils # 16.7 K/mcL (1.6-8.9); Platelet Count 326 K/mcL (140-400); Red Cell Distribution Width 15.8 % (11.5-14.5); Segmented Neutrophils % 90.1 %; White Blood Count 18.6 K/mcL (4.3-11.1)
[2022-01-01 04:40] LABS: BUN/Creatinine Ratio 25 (6-26); Blood Urea Nitrogen 11 mg/dL (8-23); Calcium 8.4 mg/dL (8.6-10.3); Carbon Dioxide 26 mEq/L (23-29); Chloride 97 mEq/L (98-107); Glucose 252 mg/dL (70-105); Osmolality,Calculated 278 (280-300); Potassium 3.8 mEq/L (3.5-5.1); Sodium 130 mEq/L (136-145); eGFR For African Americans > 60 (> 60); eGFR For Non-African Americans > 60 (> 60)
[2022-01-01] MEDS: Heparin 25,000UNIT/250ML 1/2NS 25,000 UNIT/250 ML IV.SOLN IVC SCH ×2 (04:56→18:16)
[2022-01-01] MEDS: Insulin LISPRO 300 UNITS/3 ML VIAL SUBQ SCH ×4 (09:30→22:21)
[2022-01-01] MEDS: Folic Acid 1 MG TABLET PO SCH (09:45)
[2022-01-01] MEDS: Vitamin B Complex/Vit C/Vit E 1 EACH TABLET PO SCH (09:45)
[2022-01-01] MEDS: Thiamine (B-1) 100 MG TABLET PO SCH (09:45)
[2022-01-01] MEDS: MethylPREDNISolone 40 MG/ML VIAL IVP SCH ×2 (09:45→17:29)
[2022-01-01] MEDS: Furosemide 40 MG/4 ML VIAL IVP SCH (09:45)
[2022-01-01] MEDS: hydrOXYzine pamoate 25 MG CAPSULE PO SCH ×3 (09:45→22:06)
[2022-01-01] MEDS: Gabapentin 300 MG CAPSULE PO SCH ×3 (12:12→22:05)
[2022-01-01] MEDS: Miconazole 2% ointment 141 APPL/141 GM TUBE TP SCH ×2 (12:12→22:21)
[2022-01-01] MEDS: Nicotine 21 MG PATCH.TD24 TD SCH (12:12)
[2022-01-01] MEDS: Acetaminophen 325 MG TABLET PO PRN (15:40)
[2022-01-01] MEDS: *HR* Rivaroxaban 15 MG TABLET PO SCH (22:06)
[2022-01-02] MEDS: Ipratropium/Albuterol Neb 3 ML IH SCH ×4 (04:34→22:16)
[2022-01-02] MEDS: MethylPREDNISolone 40 MG/ML VIAL IVP SCH ×2 (05:14→16:12)
[2022-01-02 08:41] LABS: Basophils % 0.1 %; Eosinophils % 0.1 %; Hematocrit 37.5 % (37.5-50.1); Hemoglobin 12.7 g/dL (12.9-16.9); Immature Granulocytes % 0.6 % (0-4); Lymphocytes # 0.9 K/mcL (0.6-4.6); Lymphocytes % 5.9 %; Mean Corpuscular HGB Conc 33.9 g/dL (31.6-35.5); Mean Corpuscular Hemoglobin 30.1 pg (28.0-33.3); Mean Corpuscular Volume 88.9 fL (83.0-100.0); Mean Platelet Volume 10.8 fL (9.4-12.4); Monocytes # 0.8 K/mcL (0.0-1.3); Monocytes % 5.1 %; Neutrophils # 13.3 K/mcL (1.6-8.9); Platelet Count 340 K/mcL (140-400); Red Blood Count 4.22 M/mcL (4.19-5.50); Segmented Neutrophils % 88.2 %
[2022-01-02] MEDS: Gabapentin 300 MG CAPSULE PO SCH ×3 (09:00→20:50)
[2022-01-02 09:01] LABS: BUN/Creatinine Ratio 31 (6-26); Blood Urea Nitrogen 12 mg/dL (8-23); Calcium 8.8 mg/dL (8.6-10.3); Carbon Dioxide 28 mEq/L (23-29); Chloride 98 mEq/L (98-107); Glucose 169 mg/dL (70-105); Osmolality,Calculated 276 (280-300); Sodium 131 mEq/L (136-145); eGFR For African Americans > 60 (> 60); eGFR For Non-African Americans > 60 (> 60)
[2022-01-02] MEDS: Insulin LISPRO 300 UNITS/3 ML VIAL SUBQ SCH ×4 (09:44→20:53)
[2022-01-02] MEDS: Nicotine 21 MG PATCH.TD24 TD SCH (12:14)
[2022-01-02] MEDS: Vitamin B Complex/Vit C/Vit E 1 EACH TABLET PO SCH (12:14)
[2022-01-02] MEDS: Thiamine (B-1) 100 MG TABLET PO SCH (12:15)
[2022-01-02] MEDS: Folic Acid 1 MG TABLET PO SCH (12:15)
[2022-01-02] MEDS: Furosemide 40 MG/4 ML VIAL IVP SCH (12:15)
[2022-01-02] MEDS: hydrOXYzine pamoate 25 MG CAPSULE PO SCH ×3 (12:15→20:52)
[2022-01-02] MEDS: Miconazole 2% ointment 141 APPL/141 GM TUBE TP SCH ×2 (12:15→21:00)
[2022-01-02] MEDS: *HR* Rivaroxaban 15 MG TABLET PO SCH ×2 (12:15→20:52)
[2022-01-03] MEDS: Ipratropium/Albuterol Neb 3 ML IH SCH ×4 (04:15→22:13)
[2022-01-03] MEDS: MethylPREDNISolone 40 MG/ML VIAL IVP SCH (05:18)
[2022-01-03 06:04] LABS: Basophils % 0.1 %; Eosinophils # 0.1 K/mcL (0.0-0.6); Eosinophils % 0.4 %; Hematocrit 37.1 % (37.5-50.1); Hemoglobin 12.4 g/dL (12.9-16.9); Immature Granulocytes % 0.5 % (0-4); Lymphocytes # 2.4 K/mcL (0.6-4.6); Lymphocytes % 14.5 %; Mean Corpuscular HGB Conc 33.4 g/dL (31.6-35.5); Mean Corpuscular Hemoglobin 29.8 pg (28.0-33.3); Mean Corpuscular Volume 89.2 fL (83.0-100.0); Monocytes # 1.7 K/mcL (0.0-1.3); Monocytes % 10.3 %; Neutrophils # 12.1 K/mcL (1.6-8.9); Platelet Count 348 K/mcL (140-400); Red Blood Count 4.16 M/mcL (4.19-5.50); Red Cell Distribution Width 16.1 % (11.5-14.5); Segmented Neutrophils % 74.2 %; White Blood Count 16.3 K/mcL (4.3-11.1)
[2022-01-03 06:24] LABS: BUN/Creatinine Ratio 28 (6-26); Blood Urea Nitrogen 11 mg/dL (8-23); Calcium 8.5 mg/dL (8.6-10.3); Carbon Dioxide 30 mEq/L (23-29); Chloride 100 mEq/L (98-107); Glucose 129 mg/dL (70-105); Osmolality,Calculated 279 (280-300); Potassium 3.7 mEq/L (3.5-5.1); Sodium 134 mEq/L (136-145); eGFR For African Americans > 60 (> 60); eGFR For Non-African Americans > 60 (> 60)
[2022-01-03] MEDS: Insulin LISPRO 300 UNITS/3 ML VIAL SUBQ SCH ×4 (07:28→20:33)
[2022-01-03] MEDS: Vitamin B Complex/Vit C/Vit E 1 EACH TABLET PO SCH (09:43)
[2022-01-03] MEDS: *HR* Rivaroxaban 15 MG TABLET PO SCH ×2 (09:43→20:33)
[2022-01-03] MEDS: Furosemide 40 MG/4 ML VIAL IVP SCH (09:43)
[2022-01-03] MEDS: hydrOXYzine pamoate 25 MG CAPSULE PO SCH ×3 (09:43→20:33)
[2022-01-03] MEDS: Thiamine (B-1) 100 MG TABLET PO SCH (09:44)
[2022-01-03] MEDS: Folic Acid 1 MG TABLET PO SCH (09:45)
[2022-01-03] MEDS: Nicotine 21 MG PATCH.TD24 TD SCH (09:45)
[2022-01-03] MEDS: Gabapentin 300 MG CAPSULE PO SCH ×3 (09:45→20:33)
[2022-01-03] MEDS: Miconazole 2% ointment 141 APPL/141 GM TUBE TP SCH ×2 (09:45→22:15)
[2022-01-03] MEDS: Acetaminophen 325 MG TABLET PO PRN (15:57)
[2022-01-03] MEDS: Furosemide 40 MG TABLET PO SCH (15:58)
[2022-01-04] MEDS: Ipratropium/Albuterol Neb 3 ML IH SCH ×4 (04:02→22:26)
[2022-01-04 05:36] LABS: Basophils % 0.3 %; Eosinophils # 0.1 K/mcL (0.0-0.6); Eosinophils % 0.9 %; Hemoglobin 12.4 g/dL (12.9-16.9); Immature Granulocytes % 0.8 % (0-4); Lymphocytes # 2.3 K/mcL (0.6-4.6); Mean Corpuscular HGB Conc 33.5 g/dL (31.6-35.5); Mean Corpuscular Volume 89.4 fL (83.0-100.0); Mean Platelet Volume 10.3 fL (9.4-12.4); Monocytes # 1.5 K/mcL (0.0-1.3); Monocytes % 9.7 %; Neutrophils # 11.3 K/mcL (1.6-8.9); Platelet Count 376 K/mcL (140-400); Red Blood Count 4.14 M/mcL (4.19-5.50); Red Cell Distribution Width 16.4 % (11.5-14.5); Segmented Neutrophils % 73.3 %; White Blood Count 15.4 K/mcL (4.3-11.1)
[2022-01-04 05:56] LABS: BUN/Creatinine Ratio 28 (6-26); Blood Urea Nitrogen 12 mg/dL (8-23); Calcium 8.2 mg/dL (8.6-10.3); Carbon Dioxide 28 mEq/L (23-29); Chloride 96 mEq/L (98-107); Glucose 142 mg/dL (70-105); Osmolality,Calculated 274 (280-300); Potassium 3.7 mEq/L (3.5-5.1); Sodium 131 mEq/L (136-145); eGFR For African Americans > 60 (> 60); eGFR For Non-African Americans > 60 (> 60)
[2022-01-04] MEDS: Insulin LISPRO 300 UNITS/3 ML VIAL SUBQ SCH ×4 (07:29→20:53)
[2022-01-04] MEDS: Nicotine 21 MG PATCH.TD24 TD SCH (08:22)
[2022-01-04] MEDS: Furosemide 40 MG TABLET PO SCH (08:25)
[2022-01-04] MEDS: Thiamine (B-1) 100 MG TABLET PO SCH (08:26)
[2022-01-04] MEDS: Vitamin B Complex/Vit C/Vit E 1 EACH TABLET PO SCH (08:26)
[2022-01-04] MEDS: Folic Acid 1 MG TABLET PO SCH (08:26)
[2022-01-04] MEDS: Gabapentin 300 MG CAPSULE PO SCH ×3 (08:26→20:53)
[2022-01-04] MEDS: Miconazole 2% ointment 141 APPL/141 GM TUBE TP SCH ×2 (08:26→20:56)
[2022-01-04] MEDS: hydrOXYzine pamoate 25 MG CAPSULE PO SCH (08:26)
[2022-01-04] MEDS: *HR* Rivaroxaban 15 MG TABLET PO SCH ×2 (08:26→20:53)
[2022-01-04] MEDS: predniSONE 20 MG TABLET PO SCH (08:26)
[2022-01-04] MEDS ORDERED: E-Z-PAQUE (BARIUM SULF) SUSP 1 BOTTLE PO ONE (11:44)
[2022-01-04] MEDS ORDERED: E-Z-HD (BARIUM SULF) SUSPENSION PO ONE (11:44)
[2022-01-05 01:50] LABS: Basophils % 0.2 %; Eosinophils # 0.1 K/mcL (0.0-0.6); Eosinophils % 0.5 %; Hematocrit 34.4 % (37.5-50.1); Hemoglobin 11.8 g/dL (12.9-16.9); Lymphocytes # 2.1 K/mcL (0.6-4.6); Lymphocytes % 12.2 %; Mean Corpuscular HGB Conc 34.3 g/dL (31.6-35.5); Mean Corpuscular Hemoglobin 30.3 pg (28.0-33.3); Mean Corpuscular Volume 88.4 fL (83.0-100.0); Mean Platelet Volume 10.1 fL (9.4-12.4); Monocytes # 1.5 K/mcL (0.0-1.3); Monocytes % 8.9 %; Neutrophils # 13.2 K/mcL (1.6-8.9); Platelet Count 338 K/mcL (140-400); Red Blood Count 3.89 M/mcL (4.19-5.50); Red Cell Distribution Width 15.9 % (11.5-14.5); Segmented Neutrophils % 77.2 %
[2022-01-05 02:04] LABS: BUN/Creatinine Ratio 23 (6-26); Blood Urea Nitrogen 9 mg/dL (8-23); Calcium 8.4 mg/dL (8.6-10.3); Carbon Dioxide 28 mEq/L (23-29); Chloride 97 mEq/L (98-107); Glucose 212 mg/dL (70-105); Osmolality,Calculated 273 (280-300); Potassium 3.8 mEq/L (3.5-5.1); Sodium 129 mEq/L (136-145); eGFR For African Americans > 60 (> 60); eGFR For Non-African Americans > 60 (> 60)
[2022-01-05] MEDS: Ipratropium/Albuterol Neb 3 ML IH SCH ×3 (04:13→15:35)
[2022-01-05] MEDS ORDERED: Furosemide 40 MG TABLET PO SCH (09:00)
[2022-01-05] MEDS: Insulin LISPRO 300 UNITS/3 ML VIAL SUBQ SCH ×2 (09:06→12:30)
[2022-01-05] MEDS: Nicotine 21 MG PATCH.TD24 TD SCH (09:07)
[2022-01-05] MEDS: *HR* Rivaroxaban 15 MG TABLET PO SCH (09:09)
[2022-01-05] MEDS: Thiamine (B-1) 100 MG TABLET PO SCH (09:09)
[2022-01-05] MEDS: predniSONE 20 MG TABLET PO SCH (09:09)
[2022-01-05] MEDS: Vitamin B Complex/Vit C/Vit E 1 EACH TABLET PO SCH (09:10)
[2022-01-05] MEDS: Folic Acid 1 MG TABLET PO SCH (09:10)
[2022-01-05] MEDS: Gabapentin 300 MG CAPSULE PO SCH ×2 (09:10→15:51)
[2022-01-05] MEDS: Miconazole 2% ointment 141 APPL/141 GM TUBE TP SCH (09:11)
[2022-01-05 10:44] VITALS: BP 153/81; PULSE 87; TEMP 97.9
[2022-01-05 15:39] VITALS: O2SAT 98
== END 2022-01-05 18:48 | disposition home health service (06) | DRG 720 ==
LOC: ICNU 18:27 → EMEROOARM 18:27 → SUATTDRO 22:23 → ICNU 23:03 → 2ANU 12-18 17:01 → 2NENU 12-24 17:55
PROVIDERS: ADMIT Internal Medicine; ATTEND General Practice

== ENCOUNTER 2022-01-24 18:05 | Observation (INO) ==
[2022-01-24 20:20] LABS: Basophils # 0.1 K/mcL (0.0-0.2); Basophils % 0.3 %; Eosinophils # 0.3 K/mcL (0.0-0.6); Eosinophils % 1.4 %; Hematocrit 38.1 % (37.5-50.1); Hemoglobin 13.2 g/dL (12.9-16.9); Immature Granulocytes % 0.6 % (0-4); Lymphocytes # 2.2 K/mcL (0.6-4.6); Lymphocytes % 12.1 %; Mean Corpuscular HGB Conc 34.6 g/dL (31.6-35.5); Mean Corpuscular Hemoglobin 30.6 pg (28.0-33.3); Mean Corpuscular Volume 88.4 fL (83.0-100.0); Mean Platelet Volume 9.3 fL (9.4-12.4); Monocytes # 1.5 K/mcL (0.0-1.3); Monocytes % 8.2 %; Neutrophils # 14.2 K/mcL (1.6-8.9); Platelet Count 148 K/mcL (140-400); Red Blood Count 4.31 M/mcL (4.19-5.50); Red Cell Distribution Width 17.9 % (11.5-14.5); Segmented Neutrophils % 77.4 %; White Blood Count 18.3 K/mcL (4.3-11.1)
[2022-01-24 20:37] LABS: BUN/Creatinine Ratio 5 (6-26); Blood Urea Nitrogen 2 mg/dL (8-23); C-Reactive Protein 22 mg/L (Less than 10); Calcium 7.7 mg/dL (8.6-10.3); Carbon Dioxide 24 mEq/L (23-29); Chloride 94 mEq/L (98-107); Glucose 128 mg/dL (70-105); Osmolality,Calculated 260 (280-300); Potassium 3.5 mEq/L (3.5-5.1); Sodium 126 mEq/L (136-145); eGFR For African Americans > 60 (> 60); eGFR For Non-African Americans > 60 (> 60)
[2022-01-24] MEDS ORDERED: 0.9 % Sodium Chloride 1,000 ML IV ONE ×2 (20:44→22:45)
[2022-01-24 21:15] LABS: Alanine Aminotransferase 9 Units/L (7-52); Albumin 2.5 g/dL (3.5-5.7); Alkaline Phosphatase 160 Units/L (34-104); Aspartate Amino Transferase 15 Units/L (13-39); Bilirubin,Direct 0.2 mg/dL (0.0-0.2); Bilirubin,Indirect 0.3 mg/dL (0.0-1.0); Bilirubin,Total 0.5 mg/dL (0.3-1.0); Globulin 2.4 g/dL (2.4-3.5); Total Protein 4.9 g/dL (6.4-8.9)
[2022-01-24] MEDS ORDERED: Cefepime HCl 2,000 MG in 0.9 % Sodium Chloride 10 ML IVP ONE (22:44)
[2022-01-24 23:19] LABS: Chloride,Urine < 15 mEq/L; Creatinine,Urine 25 mg/dL; Sodium, Urine < 10.0 mEq/L
[2022-01-24] MEDS ORDERED: Iopamidol - 370 500 ML MLS IVP ONE (23:54)
[2022-01-25] MEDS ORDERED: Acetaminophen 325 MG TABLET PO PRN (01:39)
[2022-01-25] MEDS ORDERED: Naloxone 0.4 MG/ML INJ IVP PRN (01:39)
[2022-01-25] MEDS ORDERED: Ondansetron 4 MG/2 ML VIAL IVP PRN (01:39)
[2022-01-25] MEDS ORDERED: Melatonin 3 MG TABLET PO PRN (01:39)
[2022-01-25] MEDS ORDERED: *HR* LORazepam 2 MG/ML VIAL IVP PRN ×3 (02:25)
[2022-01-25] MEDS ORDERED: 0.9 % Sodium Chloride 1,000 ML IVC ONE (02:52)
[2022-01-25] MEDS ORDERED: Nicotine 21 MG PATCH.TD24 TD PRN (04:24)
[2022-01-25 04:53] LABS: Bilirubin,Urine Negative (Negative); Blood,Urine Negative (Negative); Clarity,Urine Clear (Clear); Color,Urine Light-Yellow (Yellow); Glucose,Urine (UA) Normal (Normal); Ketones,Urine Negative (Negative); Leukocyte Esterase,Urine Trace (Negative); Nitrite,Urine Positive (Negative); PH,Urine 6.5 pH Units (5.0-8.0); Protein,Urine Negative (Neg-Trace); RBC,Urine 0-3 per hpf (0-3); Specific Gravity,Urine 1.005 (1.010-1.025); Urobilinogen,Urine Normal (Normal); WBC,Urine 0-3 per hpf (0-3)
[2022-01-25 08:05] LABS: Basophils # 0.1 K/mcL (0.0-0.2); Basophils % 0.3 %; Eosinophils # 0.2 K/mcL (0.0-0.6); Hematocrit 39.7 % (37.5-50.1); Hemoglobin 13.4 g/dL (12.9-16.9); Immature Granulocytes % 0.4 % (0-4); Lymphocytes # 2.1 K/mcL (0.6-4.6); Lymphocytes % 10.7 %; Mean Corpuscular HGB Conc 33.8 g/dL (31.6-35.5); Mean Platelet Volume 10.6 fL (9.4-12.4); Monocytes # 1.7 K/mcL (0.0-1.3); Monocytes % 8.6 %; Neutrophils # 15.3 K/mcL (1.6-8.9); Platelet Count 165 K/mcL (140-400); Red Blood Count 4.46 M/mcL (4.19-5.50); Red Cell Distribution Width 18.2 % (11.5-14.5); White Blood Count 19.3 K/mcL (4.3-11.1)
[2022-01-25 08:10] LABS: BUN/Creatinine Ratio 6 (6-26); Blood Urea Nitrogen 2 mg/dL (8-23); Calcium 7.5 mg/dL (8.6-10.3); Carbon Dioxide 25 mEq/L (23-29); Chloride 102 mEq/L (98-107); Glucose 102 mg/dL (70-105); Magnesium 1.6 mg/dL (1.6-2.6); Osmolality,Calculated 270 (280-300); Phosphorous 3.2 mg/dL (2.7-4.5); Potassium 3.9 mEq/L (3.5-5.1); Sodium 132 mEq/L (136-145); eGFR For African Americans > 60 (> 60); eGFR For Non-African Americans > 60 (> 60)
[2022-01-25 08:11] LABS: Albumin 2.4 g/dL (3.5-5.7); Bilirubin,Direct 0.3 mg/dL (0.0-0.2); Bilirubin,Indirect 0.3 mg/dL (0.0-1.0); Bilirubin,Total 0.6 mg/dL (0.3-1.0); Globulin 2.4 g/dL (2.4-3.5); Total Protein 4.8 g/dL (6.4-8.9)
[2022-01-25] MEDS ORDERED: Thiamine (B-1) 200 MG in 0.9 % Sodium Chloride 50 ML IVPB SCH (09:00)
[2022-01-25] MEDS: VITAMIN K IVPB SCH (09:57)
[2022-01-25] MEDS: FOLIC ACID IVPB SCH (09:57)
[2022-01-25] MEDS: MVI IVPB SCH (09:57)
[2022-01-25] MEDS: THIAMINE IVPB SCH (09:57)
[2022-01-25] MEDS: [UNRECOGNIZED DRUG - OTHER] IVPB SCH (09:57)
[2022-01-25] MEDS: Piperacillin/Tazobactam 3.375 GM in 0.9 % Sodium Chloride Mini Bag 100 ML IVPB SCH ×2 (11:53→18:31)
[2022-01-25] MEDS ORDERED: Iopamidol - 370 500 ML MLS IVP ONE (12:22)
[2022-01-25] MEDS: Aspirin 81 MG TAB.CHEW PO SCH (15:45)
[2022-01-25] MEDS ORDERED: Gabapentin 400 MG CAPSULE PO SCH (21:00)
[2022-01-25] MEDS: Gabapentin 400 MG CAPSULE PO SCH (21:02)
[2022-01-25] MEDS: Budesonide/Formoterol 80/4.5 1 PUFF INH IH SCH (22:12)
[2022-01-26] MEDS: Piperacillin/Tazobactam 3.375 GM in 0.9 % Sodium Chloride Mini Bag 100 ML IVPB SCH ×2 (02:28→11:37)
[2022-01-26 02:38] LABS: Basophils % 0.3 %; Eosinophils # 0.3 K/mcL (0.0-0.6); Eosinophils % 2.1 %; Hematocrit 38.3 % (37.5-50.1); Hemoglobin 12.8 g/dL (12.9-16.9); Immature Granulocytes % 0.5 % (0-4); Lymphocytes # 1.7 K/mcL (0.6-4.6); Lymphocytes % 13.9 %; Mean Corpuscular HGB Conc 33.4 g/dL (31.6-35.5); Mean Corpuscular Volume 89.9 fL (83.0-100.0); Mean Platelet Volume 9.7 fL (9.4-12.4); Monocytes # 1.4 K/mcL (0.0-1.3); Monocytes % 11.1 %; Platelet Count 131 K/mcL (140-400); Red Blood Count 4.26 M/mcL (4.19-5.50); Segmented Neutrophils % 72.1 %; White Blood Count 12.5 K/mcL (4.3-11.1)
[2022-01-26 02:57] LABS: BUN/Creatinine Ratio 8 (6-26); Blood Urea Nitrogen 3 mg/dL (8-23); Calcium 7.5 mg/dL (8.6-10.3); Carbon Dioxide 26 mEq/L (23-29); Chloride 99 mEq/L (98-107); Glucose 133 mg/dL (70-105); Osmolality,Calculated 266 (280-300); Sodium 129 mEq/L (136-145); eGFR For African Americans > 60 (> 60); eGFR For Non-African Americans > 60 (> 60)
[2022-01-26] MEDS ORDERED: Folic Acid 1 MG TABLET PO SCH (09:00)
[2022-01-26] MEDS ORDERED: Thiamine (B-1) 100 MG TABLET PO SCH (09:00)
[2022-01-26] MEDS ORDERED: Propranolol LA (24 HR) 60 MG CAP.SA.24H PO SCH (09:00)
[2022-01-26] MEDS: Aspirin 81 MG TAB.CHEW PO SCH (09:19)
[2022-01-26] MEDS: MVI IVPB SCH (09:19)
[2022-01-26] MEDS: VITAMIN K IVPB SCH (09:19)
[2022-01-26] MEDS: FOLIC ACID IVPB SCH (09:19)
[2022-01-26] MEDS: [UNRECOGNIZED DRUG - OTHER] IVPB SCH (09:19)
[2022-01-26] MEDS: Gabapentin 400 MG CAPSULE PO SCH (09:19)
[2022-01-26] MEDS: THIAMINE IVPB SCH (09:19)
[2022-01-26] MEDS ORDERED: Tiotropium 10 INH DOSE IH SCH (10:00)
[2022-01-26] MEDS: Budesonide/Formoterol 80/4.5 1 PUFF INH IH SCH (10:35)
[2022-01-26 11:34] VITALS: PULSE 77; TEMP 97.5
[2022-01-26 11:56] VITALS: BP 98/58
[2022-01-26 15:52] VITALS: O2SAT 100
== END 2022-01-26 15:57 | disposition home or self-care (01) ==
LOC: EMEROOARM 18:05 → 2NENU 18:05 → SUATTDRO 01-25 00:04 → 2NENU 01-25 01:09
PROVIDERS: ADMIT Internal Medicine; ATTEND Internal Medicine

== ENCOUNTER 2022-04-05 17:14 | Inpatient (IN) ==
[2022-04-05] MEDS ORDERED: Vancomycin 1,250 MG/262.5 ML IV.SOLN IVPB ONE (19:00)
[2022-04-05] MEDS ORDERED: Ringers Solution, Lactated 1,000 ML IVC ONE (19:00)
[2022-04-05 19:24] LABS: Basophils % 0.3 %; Hemoglobin 13.5 g/dL (12.9-16.9); Immature Granulocytes % 0.6 % (0-4)
[2022-04-05 19:25] LABS: Basophils # 0.1 K/mcL (0.0-0.2); Eosinophils # 0.1 K/mcL (0.0-0.6); Eosinophils % 0.3 %; Hematocrit 38.5 % (37.5-50.1); Immature Platelets 3.7 % (1.1-6.1); Lymphocytes # 2.1 K/mcL (0.6-4.6); Lymphocytes % 8.9 %; Mean Corpuscular HGB Conc 35.1 g/dL (31.6-35.5); Mean Corpuscular Hemoglobin 32.4 pg (28.0-33.3); Mean Corpuscular Volume 92.3 fL (83.0-100.0); Mean Platelet Volume 9.6 fL (9.4-12.4); Monocytes # 1.2 K/mcL (0.0-1.3); Monocytes % 5.3 %; Neutrophils # 19.8 K/mcL (1.6-8.9); Red Blood Count 4.17 M/mcL (4.19-5.50); Red Cell Distribution Width 12.9 % (11.5-14.5); Segmented Neutrophils % 84.6 %; White Blood Count 23.4 K/mcL (4.3-11.1)
[2022-04-05] MEDS ORDERED: *HR* OxyCODONE Immed Rel 5 MG TABLET PO ONE (19:26)
[2022-04-05 19:44] LABS: BUN/Creatinine Ratio 22 (6-26); Blood Urea Nitrogen 9 mg/dL (8-23); Calcium 7.7 mg/dL (8.6-10.3); Carbon Dioxide 22 mEq/L (23-29); Chloride 94 mEq/L (98-107); Glucose 105 mg/dL (70-105); Osmolality,Calculated 259 (280-300); Potassium 3.3 mEq/L (3.5-5.1); Sodium 125 mEq/L (136-145)
[2022-04-05 19:46] LABS: Platelet Count 296 K/mcL (140-400)
[2022-04-05 19:53] LABS: Troponin I 0.06 ng/mL (< 0.04)
[2022-04-05 20:14] LABS: Influenza A PCR Negative (Negative); Influenza B PCR Negative (Negative); Resp. Syncytial Virus PCR Negative (Negative)
[2022-04-05 20:15] LABS: SARS-CoV-2 by PCR (In House) Negative (Negative)
[2022-04-05] MEDS ORDERED: Clindamycin 300 MG/50 ML 300 MG/50 ML IV.SOLN IVPB ONE (20:54)
[2022-04-05] MEDS ORDERED: Cefepime HCl 1,000 MG in 0.9 % Sodium Chloride Mini Bag 100 ML IVPB ONE (21:00)
[2022-04-05] MEDS ORDERED: Ondansetron 4 MG/2 ML VIAL IVP PRN (21:43)
[2022-04-05] MEDS ORDERED: Acetaminophen 325 MG TABLET PO PRN (21:43)
[2022-04-05] MEDS ORDERED: Naloxone 0.4 MG/ML INJ IVP PRN (21:43)
[2022-04-05] MEDS ORDERED: 0.9 % Sodium Chloride 1,000 ML IVC SCH (21:45)
[2022-04-05 22:12] LABS: Ethanol 21 mg/dL (Less than 10)
[2022-04-05] MEDS ORDERED: *HR* LORazepam 1 MG TABLET PO PRN (23:17)
[2022-04-05] MEDS ORDERED: *HR* LORazepam 2 MG/ML VIAL IVP PRN (23:17)
[2022-04-06] MEDS: Clindamycin 600 MG/50 ML 600 MG/50 ML IV.SOLN IVPB SCH ×3 (04:32→18:45)
[2022-04-06 05:23] LABS: Bilirubin,Urine Negative (Negative); Blood,Urine Negative (Negative); Budding Yeast,Urine Many per hpf (None Seen); Clarity,Urine Ex.Turbid (Clear); Color,Urine Yellow (Yellow); Glucose,Urine (UA) Normal (Normal); Ketones,Urine 10 mg/dL (Negative); Leukocyte Esterase,Urine Large (Negative); Mucus,Urine Few per lpf (None-Few); Nitrite,Urine Positive (Negative); Protein,Urine 100 mg/dL (Neg-Trace); Specific Gravity,Urine 1.022 (1.010-1.025); Squamous Epithelial Cell,Urine Few per hpf (None-Few); Triple Phosphate Crystal,Urine Present per hpf; Urobilinogen,Urine Normal (Normal); WBC,Urine TNTC per hpf (0-3)
[2022-04-06 05:33] LABS: Basophils # 0.1 K/mcL (0.0-0.2); Basophils % 0.3 %; Eosinophils # 0.1 K/mcL (0.0-0.6); Eosinophils % 0.4 %; Hematocrit 36.9 % (37.5-50.1); Hemoglobin 12.9 g/dL (12.9-16.9); Immature Granulocytes % 0.8 % (0-4); Lymphocytes # 1.8 K/mcL (0.6-4.6); Lymphocytes % 9.2 %; Mean Corpuscular Hemoglobin 32.3 pg (28.0-33.3); Mean Corpuscular Volume 92.3 fL (83.0-100.0); Mean Platelet Volume 9.2 fL (9.4-12.4); Monocytes # 1.1 K/mcL (0.0-1.3); Monocytes % 5.8 %; Neutrophils # 16.2 K/mcL (1.6-8.9); Platelet Count 291 K/mcL (140-400); Red Cell Distribution Width 12.8 % (11.5-14.5); Segmented Neutrophils % 83.5 %; White Blood Count 19.4 K/mcL (4.3-11.1)
[2022-04-06 05:43] LABS: INR 1.1; Prothrombin Time 12.8 Seconds (9.4-12.1)
[2022-04-06 05:53] LABS: Albumin 2.3 g/dL (3.5-5.7); Albumin/Globulin Ratio 0.7 (1.1-2.2); Bilirubin,Direct 0.3 mg/dL (0.0-0.2); Bilirubin,Indirect 0.4 mg/dL (0.0-1.0); Bilirubin,Total 0.7 mg/dL (0.3-1.0); Globulin 3.3 g/dL (2.4-3.5); Total Protein 5.6 g/dL (6.4-8.9)
[2022-04-06 05:54] LABS: BUN/Creatinine Ratio 20 (6-26); Blood Urea Nitrogen 8 mg/dL (8-23); Calcium 7.9 mg/dL (8.6-10.3); Carbon Dioxide 24 mEq/L (23-29); Chloride 97 mEq/L (98-107); Glucose 92 mg/dL (70-105); Osmolality,Calculated 262 (280-300); Potassium 3.2 mEq/L (3.5-5.1); Sodium 127 mEq/L (136-145)
[2022-04-06 06:09] LABS: Chol/HDL Ratio 2.4 (0-4.9); Magnesium 1.6 mg/dL (1.6-2.6); Phosphorous 2.9 mg/dL (2.7-4.5); Thyroid Stimulating Hormone 1.117 mcIU/mL (0.340-5.600)
[2022-04-06] MEDS ORDERED: Albuterol 2.5 MG/3 ML NEBULIZER IH PRN (06:20)
[2022-04-06] MEDS: Cefepime HCl 2,000 MG in 0.9 % Sodium Chloride Mini Bag 100 ML IVPB SCH ×2 (06:31→14:26)
[2022-04-06] MEDS: Nicotine 21 MG PATCH.TD24 TD SCH (08:38)
[2022-04-06] MEDS: Gabapentin 400 MG CAPSULE PO SCH ×2 (08:39→23:45)
[2022-04-06] MEDS: Propranolol LA (24 HR) 60 MG CAP.SA.24H PO SCH (09:36)
[2022-04-06] MEDS ORDERED: Morphine Sulfate 2 MG/ML SYRINGE IVP PRN (10:43)
[2022-04-06 11:26] LABS: A.calcoaceticus-baumannii cplx Not Detected (Not Detect); Bacteroides fragilis by PCR Not Detected (Not Detect); CTX-M ESBL Gene Not Detected (Not Detect); Enterobacter cloacae Cmplx PCR Not Detected (Not Detect); Enterobacterales by PCR DETECTED (Not Detect); Enterococcus faecalis by PCR Not Detected (Not Detect); Enterococcus faecium by PCR Not Detected (Not Detect); Escherichia coli by PCR Not Detected (Not Detect); IMP Carbapenem-Resist Gene Not Detected (Not Detect); Klebs. pneumoniae group by PCR Not Detected (Not Detect); Klebsiella aerogenes by PCR Not Detected (Not Detect); Klebsiella oxytoca by PCR Not Detected (Not Detect); NDM Carbapenem-Resist Gene Not Detected (Not Detect); OXA-48-like Carbap-Resist Gene Not Detected (Not Detect); Proteus by PCR Not Detected (Not Detect); Pseudomonas aeruginosa by PCR Not Detected (Not Detect); Salmonella species by PCR Not Detected (Not Detect); Serratia marcescens by PCR Not Detected (Not Detect); Staph epidermidis by PCR Not Detected (Not Detect); Staph lugdunensis by PCR Not Detected (Not Detect); Staphylococcus aureus by PCR Not Detected (Not Detect); Staphylococcus by PCR Not Detected (Not Detect); Streptococcus agalactiae(B)PCR Not Detected (Not Detect); Streptococcus by PCR Not Detected (Not Detect); Streptococcus pneumoniae PCR Not Detected (Not Detect); Streptococcus pyogenes (A) PCR Not Detected (Not Detect); VIM Carbapenem-Resist Gene Not Detected (Not Detect); blaKPC Carbapenem-Resist Gene Not Detected (Not Detect)
[2022-04-06 11:27] LABS: Candida albicans by PCR Not Detected (Not Detect); Candida auris by PCR Not Detected (Not Detect); Candida glabrata by PCR Not Detected (Not Detect); Candida krusei by PCR Not Detected (Not Detect); Candida parapsilosis by PCR Not Detected (Not Detect); Candida tropicalis by PCR Not Detected (Not Detect); Crypto. neoformans/gattii PCR Not Detected (Not Detect); Stenotrophomonas maltophilia Not Detected (Not Detect)
[2022-04-06] MEDS: Tiotropium 10 INH DOSE IH SCH (11:27)
[2022-04-06] MEDS: Budesonide/Formoterol 160/4.5 1 PUFF INH IH SCH ×2 (11:28→22:02)
[2022-04-06 15:01] LABS: BUN/Creatinine Ratio 15 (6-26); Blood Urea Nitrogen 6 mg/dL (8-23); Calcium 7.4 mg/dL (8.6-10.3); Carbon Dioxide 25 mEq/L (23-29); Chloride 98 mEq/L (98-107); Glucose 84 mg/dL (70-105); Osmolality,Calculated 261 (280-300); Potassium 3.7 mEq/L (3.5-5.1); Sodium 127 mEq/L (136-145)
[2022-04-06] MEDS ORDERED: Thiamine (B-1) 100 MG, Folic Acid 1 MG, MVI, adult with vitamin K 10 ML in 0.9 % Sodi... IVPB SCH (18:00)
[2022-04-07] MEDS: Cefepime HCl 2,000 MG in 0.9 % Sodium Chloride Mini Bag 100 ML IVPB SCH ×3 (00:15→23:17)
[2022-04-07] MEDS ORDERED: Dextrose Gel 15 GM/37.5 ML TUBE PO PRN ×4 (02:03→18:08)
[2022-04-07] MEDS ORDERED: D5% in Water 1,000 ML IVC PRN ×2 (02:03→18:08)
[2022-04-07] MEDS ORDERED: *HR* Dextrose 50 % in Water (Syg) 50 ML SYRINGE IVP PRN ×2 (02:03→18:08)
[2022-04-07] MEDS: Clindamycin 600 MG/50 ML 600 MG/50 ML IV.SOLN IVPB SCH ×2 (03:44→14:22)
[2022-04-07 05:53] LABS: Basophils # 0.1 K/mcL (0.0-0.2); Basophils % 0.2 %; Eosinophils # 0.1 K/mcL (0.0-0.6); Eosinophils % 0.5 %; Hematocrit 39.5 % (37.5-50.1); Hemoglobin 13.4 g/dL (12.9-16.9); Immature Granulocytes % 0.5 % (0-4); Lymphocytes # 1.9 K/mcL (0.6-4.6); Lymphocytes % 9.2 %; Mean Corpuscular HGB Conc 33.9 g/dL (31.6-35.5); Mean Corpuscular Hemoglobin 31.5 pg (28.0-33.3); Mean Corpuscular Volume 92.7 fL (83.0-100.0); Mean Platelet Volume 9.5 fL (9.4-12.4); Monocytes # 1.3 K/mcL (0.0-1.3); Monocytes % 6.2 %; Neutrophils # 17.5 K/mcL (1.6-8.9); Platelet Count 307 K/mcL (140-400); Red Blood Count 4.26 M/mcL (4.19-5.50); Red Cell Distribution Width 12.8 % (11.5-14.5); Segmented Neutrophils % 83.4 %
[2022-04-07 06:01] LABS: BUN/Creatinine Ratio 16 (6-26); Blood Urea Nitrogen 7 mg/dL (8-23); Calcium 7.5 mg/dL (8.6-10.3); Carbon Dioxide 25 mEq/L (23-29); Chloride 99 mEq/L (98-107); Glucose 153 mg/dL (70-105); Magnesium 1.5 mg/dL (1.6-2.6); Osmolality,Calculated 265 (280-300); Potassium 3.5 mEq/L (3.5-5.1); Sodium 127 mEq/L (136-145)
[2022-04-07] MEDS: Insulin LISPRO 300 UNITS/3 ML VIAL SUBQ SCH ×2 (06:42→15:45)
[2022-04-07] MEDS: Nicotine 21 MG PATCH.TD24 TD SCH (07:33)
[2022-04-07] MEDS ORDERED: 0.9 % Sodium Chloride 1,000 ML IVC SCH (07:45)
[2022-04-07] MEDS: Propranolol LA (24 HR) 60 MG CAP.SA.24H PO SCH (09:16)
[2022-04-07] MEDS: Gabapentin 400 MG CAPSULE PO SCH ×2 (09:16→21:50)
[2022-04-07] MEDS: Budesonide/Formoterol 160/4.5 1 PUFF INH IH SCH ×2 (10:14→22:28)
[2022-04-07] MEDS: Tiotropium 10 INH DOSE IH SCH (10:15)
[2022-04-07] MEDS ORDERED: ceFAZolin 1,000 MG, Sodium Chloride IRRigation 1,000 ML IR ONE (10:35)
[2022-04-07] MEDS ORDERED: *HR* Propofol 200 MG/20 ML VIAL IVP ONE (10:46)
[2022-04-07] MEDS ORDERED: *HR* FentaNYL (PF) 100 MCG/2 ML VIAL ONE (10:46)
[2022-04-07] MEDS ORDERED: *HR* Midazolam HCl 2 MG/2 ML VIAL ONE (10:46)
[2022-04-07] MEDS ORDERED: Lidocaine -MPF 2% 5 ML VIAL ONE ×2 (10:51→12:40)
[2022-04-07] MEDS ORDERED: Ondansetron 4 MG/2 ML VIAL ONE (10:51)
[2022-04-07] MEDS ORDERED: Heparin 1,000 UNITS/500 mL 500 ML ONE (10:59)
[2022-04-07] MEDS ORDERED: Albumin Human 5% 25.0 GM/500 ML IV.SOLN ONE (11:04)
[2022-04-07] MEDS ORDERED: *HR* Vasopressin 20 UNIT/ML VIAL ONE (11:05)
[2022-04-07] MEDS ORDERED: Ropivacaine/PF 0.5% 30 ML VIAL ONE (11:05)
[2022-04-07] MEDS ORDERED: ROPIVACAINE/PF/NS 0.25% 1 EACH SYRINGE INTRAART ONE (11:06)
[2022-04-07] MEDS ORDERED: Ipratropium Neb 0.5 MG NEBULIZER IH PRN ×2 (11:24→18:08)
[2022-04-07] MEDS ORDERED: *HR* HYDROmorphone PF 0.5 MG/0.5 ML SYRINGE IVP PRN ×2 (11:24→18:08)
[2022-04-07] MEDS ORDERED: *HR* FentaNYL (PF) 100 MCG/2 ML VIAL IVP PRN ×2 (11:24→18:08)
[2022-04-07 11:40] LABS: C.difficile Toxin A/B Gene PCR Not detected (Not detect); Campylobacter by PCR Not detected (Not detect); Enteroaggregative E.coli(EAEC) Not detected (Not detect); Plesiomonas shigelloides PCR Not detected (Not detect); Salmonella PCR Not detected (Not detect); Vibrio PCR Not detected (Not detect); Vibrio cholerae PCR Not detected (Not detect); Yersinia enterocolitica PCR Not detected (Not detect)
[2022-04-07 11:41] LABS: Adenovirus F 40/41 PCR Not detected (Not detect); Astrovirus PCR Not detected (Not detect); Cryptosporidium by PCR Not detected (Not detect); Cyclospora cayetanensis PCR Not detected (Not detect); Entamoeba histolytica PCR Not detected (Not detect); Enteropathogenic E.coli(EPEC) DETECTED (Not detect); Enterotoxigenic E.coli (ETEC) Not detected (Not detect); Giardia lamblia PCR Not detected (Not detect); Norovirus GI/GII PCR Not detected (Not detect); Rotavirus A PCR Not detected (Not detect); Sapovirus PCR Not detected (Not detect); Shig/EnteroinvasiveE coli EIEC Not detected (Not detect); Shigalike tox-prod E coli STEC Not detected (Not detect)
[2022-04-07] MEDS ORDERED: Ketamine HCL *QUVA* 50mg (1mL) SYRINGE ONE ×2 (13:31→13:35)
[2022-04-07] MEDS ORDERED: Albumin Human 5% 12.5 GM/250 ML IV.SOLN ONE (14:26)
[2022-04-07] MEDS ORDERED: *HR* Phenylephrine 10 MG/ML VIAL ONE (14:39)
[2022-04-07] MEDS ORDERED: *HR* Etomidate 40 MG/20 ML VIAL IVP ONE (14:40)
[2022-04-07] MEDS ORDERED: Naloxone 0.4 MG/ML INJ IVP PRN (18:08)
[2022-04-07] MEDS ORDERED: Ondansetron 4 MG/2 ML VIAL IVP PRN (18:08)
[2022-04-07] MEDS ORDERED: *HR* LORazepam 2 MG/ML VIAL IVP PRN (18:08)
[2022-04-07] MEDS ORDERED: Acetaminophen 325 MG TABLET PO PRN (18:08)
[2022-04-07] MEDS ORDERED: *HR* LORazepam 1 MG TABLET PO PRN (18:08)
[2022-04-07] MEDS ORDERED: Clindamycin 600 MG/50 ML 600 MG/50 ML IV.SOLN IVPB SCH (19:00)
[2022-04-07] MEDS: 0.9 % Sodium Chloride 1,000 ML IVC SCH (21:45)
[2022-04-07 22:27] LABS: Albumin 2.5 g/dL (3.5-5.7)
[2022-04-07] MEDS: Morphine Sulfate 2 MG/ML SYRINGE IVP PRN (22:31)
[2022-04-08] MEDS ORDERED: Insulin LISPRO 300 UNITS/3 ML VIAL SUBQ SCH
[2022-04-08 04:51] LABS: Basophils % 0.2 %; Hematocrit 30.2 % (37.5-50.1); Hemoglobin 10.5 g/dL (12.9-16.9); Immature Granulocytes % 0.4 % (0-4); Lymphocytes # 1.5 K/mcL (0.6-4.6); Lymphocytes % 9.7 %; Mean Corpuscular HGB Conc 34.8 g/dL (31.6-35.5); Mean Corpuscular Hemoglobin 31.3 pg (28.0-33.3); Mean Corpuscular Volume 90.1 fL (83.0-100.0); Mean Platelet Volume 9.4 fL (9.4-12.4); Monocytes # 1.1 K/mcL (0.0-1.3); Monocytes % 7.5 %; Neutrophils # 12.4 K/mcL (1.6-8.9); Platelet Count 272 K/mcL (140-400); Red Blood Count 3.35 M/mcL (4.19-5.50); Red Cell Distribution Width 12.6 % (11.5-14.5); Segmented Neutrophils % 82.2 %
[2022-04-08 05:14] LABS: BUN/Creatinine Ratio 16 (6-26); Blood Urea Nitrogen 5 mg/dL (8-23); Calcium 6.6 mg/dL (8.6-10.3); Carbon Dioxide 21 mEq/L (23-29); Chloride 104 mEq/L (98-107); Glucose 165 mg/dL (70-105); Magnesium 1.3 mg/dL (1.6-2.6); Osmolality,Calculated 275 (280-300); Potassium 2.7 mEq/L (3.5-5.1); Sodium 132 mEq/L (136-145)
[2022-04-08] MEDS ORDERED: Clindamycin 600 MG/50 ML 600 MG/50 ML IV.SOLN IVPB SCH (06:00)
[2022-04-08] MEDS: Cefepime HCl 2,000 MG in 0.9 % Sodium Chloride Mini Bag 100 ML IVPB SCH ×3 (06:45→22:50)
[2022-04-08] MEDS: Morphine Sulfate 2 MG/ML SYRINGE IVP PRN ×4 (06:49→20:07)
[2022-04-08] MEDS: Budesonide/Formoterol 160/4.5 1 PUFF INH IH SCH ×2 (07:48→21:51)
[2022-04-08] MEDS: Tiotropium 10 INH DOSE IH SCH (07:48)
[2022-04-08] MEDS ORDERED: Calcium Gluconate 1gm/50mL 1 GM/50 ML BAG IVPB ONE (07:50)
[2022-04-08] MEDS: Gabapentin 400 MG CAPSULE PO SCH ×2 (08:25→20:07)
[2022-04-08] MEDS: Nicotine 21 MG PATCH.TD24 TD SCH (08:25)
[2022-04-08] MEDS: 0.9 % Sodium Chloride 1,000 ML IVC SCH ×2 (09:00→23:19)
[2022-04-08] MEDS ORDERED: Propranolol LA (24 HR) 60 MG CAP.SA.24H PO SCH (09:00)
[2022-04-08] MEDS ORDERED: Iopamidol - 370 500 ML MLS IVP ONE (09:35)
[2022-04-08] MEDS: lisinopriL 5 MG TABLET PO SCH (11:36)
[2022-04-08] MEDS: Aspirin 81 MG TAB.CHEW PO SCH (11:49)
[2022-04-08] MEDS ORDERED: Thiamine (B-1) 100 MG, Folic Acid 1 MG, MVI, adult with vitamin K 10 ML in 0.9 % Sodi... IVPB SCH (18:00)
[2022-04-08] MEDS: Metoprolol XL (24 HR) Succ 25 MG TAB.ER.24H PO SCH (20:07)
[2022-04-09 05:34] LABS: Basophils % 0.2 %; Eosinophils # 0.1 K/mcL (0.0-0.6); Eosinophils % 0.4 %; Hematocrit 31.1 % (37.5-50.1); Hemoglobin 10.6 g/dL (12.9-16.9); Immature Granulocytes % 0.5 % (0-4); Lymphocytes # 1.4 K/mcL (0.6-4.6); Lymphocytes % 7.2 %; Mean Corpuscular HGB Conc 34.1 g/dL (31.6-35.5); Mean Corpuscular Hemoglobin 31.6 pg (28.0-33.3); Mean Corpuscular Volume 92.8 fL (83.0-100.0); Mean Platelet Volume 8.9 fL (9.4-12.4); Monocytes # 0.9 K/mcL (0.0-1.3); Monocytes % 4.8 %; Neutrophils # 16.3 K/mcL (1.6-8.9); Platelet Count 245 K/mcL (140-400); Red Blood Count 3.35 M/mcL (4.19-5.50); Red Cell Distribution Width 12.7 % (11.5-14.5); Segmented Neutrophils % 86.9 %; White Blood Count 18.7 K/mcL (4.3-11.1)
[2022-04-09 05:53] LABS: Albumin 2.2 g/dL (3.5-5.7); BUN/Creatinine Ratio 17 (6-26); Blood Urea Nitrogen 7 mg/dL (8-23); Calcium 7.5 mg/dL (8.6-10.3); Carbon Dioxide 24 mEq/L (23-29); Chloride 101 mEq/L (98-107); Glucose 115 mg/dL (70-105); Magnesium 1.8 mg/dL (1.6-2.6); Osmolality,Calculated 263 (280-300); Potassium 3.3 mEq/L (3.5-5.1); Sodium 127 mEq/L (136-145)
[2022-04-09] MEDS: Cefepime HCl 2,000 MG in 0.9 % Sodium Chloride Mini Bag 100 ML IVPB SCH ×3 (06:42→22:47)
[2022-04-09] MEDS: Aspirin 81 MG TAB.CHEW PO SCH (08:58)
[2022-04-09] MEDS: Gabapentin 400 MG CAPSULE PO SCH ×2 (08:58→22:47)
[2022-04-09] MEDS: Nicotine 21 MG PATCH.TD24 TD SCH (08:58)
[2022-04-09] MEDS: lisinopriL 5 MG TABLET PO SCH (09:03)
[2022-04-09] MEDS: Budesonide/Formoterol 160/4.5 1 PUFF INH IH SCH ×2 (10:53→21:59)
[2022-04-09] MEDS: Tiotropium 10 INH DOSE IH SCH (10:53)
[2022-04-09] MEDS: 0.9 % Sodium Chloride 1,000 ML IVC SCH (15:13)
[2022-04-09] MEDS: Morphine Sulfate 2 MG/ML SYRINGE IVP PRN (15:32)
[2022-04-09] MEDS: Metoprolol XL (24 HR) Succ 25 MG TAB.ER.24H PO SCH (22:47)
[2022-04-10] MEDS: Thiamine (B-1) 100 MG in 0.9 % Sodium Chloride 50 ML IVPB SCH ×2 (00:38→07:50)
[2022-04-10] MEDS: 0.9 % Sodium Chloride 1,000 ML IVC SCH ×2 (04:08→17:34)
[2022-04-10] MEDS: Cefepime HCl 2,000 MG in 0.9 % Sodium Chloride Mini Bag 100 ML IVPB SCH ×3 (05:59→22:38)
[2022-04-10 07:08] LABS: Albumin 1.7 g/dL (3.5-5.7); BUN/Creatinine Ratio 17 (6-26); Blood Urea Nitrogen 6 mg/dL (8-23); Calcium 6.9 mg/dL (8.6-10.3); Carbon Dioxide 16 mEq/L (23-29); Chloride 102 mEq/L (98-107); Glucose 105 mg/dL (70-105); Magnesium 1.5 mg/dL (1.6-2.6); Osmolality,Calculated 262 (280-300); Potassium 3.6 mEq/L (3.5-5.1); Sodium 127 mEq/L (136-145)
[2022-04-10] MEDS: Nicotine 21 MG PATCH.TD24 TD SCH (07:49)
[2022-04-10] MEDS: Gabapentin 400 MG CAPSULE PO SCH ×2 (07:49→22:37)
[2022-04-10] MEDS: Aspirin 81 MG TAB.CHEW PO SCH (07:49)
[2022-04-10] MEDS: lisinopriL 5 MG TABLET PO SCH (07:50)
[2022-04-10] MEDS: Budesonide/Formoterol 160/4.5 1 PUFF INH IH SCH ×2 (08:08→22:59)
[2022-04-10] MEDS: Tiotropium 10 INH DOSE IH SCH (08:08)
[2022-04-10] MEDS: *HR* HYDROcodone/Acet 5/325 mg TABLET PO PRN ×2 (14:16→22:37)
[2022-04-10 21:20] LABS: Mean Corpuscular Hemoglobin 31.4 pg (28.0-33.3)
[2022-04-10 21:22] LABS: Hematocrit 33.3 % (37.5-50.1); Hemoglobin 11.5 g/dL (12.9-16.9); Mean Corpuscular HGB Conc 34.5 g/dL (31.6-35.5); Mean Platelet Volume 9.2 fL (9.4-12.4); Platelet Count 287 K/mcL (140-400); Red Blood Count 3.66 M/mcL (4.19-5.50); Red Cell Distribution Width 12.7 % (11.5-14.5); White Blood Count 27.8 K/mcL (4.3-11.1)
[2022-04-10 21:46] LABS: Lymphocytes # 1.7 K/mcL (0.6-4.6); Monocytes # 1.1 K/mcL (0.0-1.3); Platelet Estimate Normal (Normal)
[2022-04-10] MEDS: Metoprolol XL (24 HR) Succ 25 MG TAB.ER.24H PO SCH (22:37)
[2022-04-11] MEDS: Cefepime HCl 2,000 MG in 0.9 % Sodium Chloride Mini Bag 100 ML IVPB SCH ×3 (04:23→23:06)
[2022-04-11] MEDS: 0.9 % Sodium Chloride 1,000 ML IVC SCH ×2 (04:23→08:21)
[2022-04-11] MEDS: *HR* HYDROcodone/Acet 5/325 mg TABLET PO PRN ×2 (04:48→12:20)
[2022-04-11] MEDS: Budesonide/Formoterol 160/4.5 1 PUFF INH IH SCH ×2 (08:05→21:05)
[2022-04-11] MEDS: Tiotropium 10 INH DOSE IH SCH (08:06)
[2022-04-11] MEDS: Nicotine 21 MG PATCH.TD24 TD SCH (08:24)
[2022-04-11] MEDS: Gabapentin 400 MG CAPSULE PO SCH ×2 (08:24→20:26)
[2022-04-11] MEDS: Aspirin 81 MG TAB.CHEW PO SCH (08:24)
[2022-04-11] MEDS: lisinopriL 5 MG TABLET PO SCH (08:27)
[2022-04-11] MEDS: Morphine Sulfate 2 MG/ML SYRINGE IVP PRN ×3 (08:34→23:06)
[2022-04-11] MEDS: Metoprolol XL (24 HR) Succ 25 MG TAB.ER.24H PO SCH (20:26)
[2022-04-12] MEDS: Cefepime HCl 2,000 MG in 0.9 % Sodium Chloride Mini Bag 100 ML IVPB SCH ×3 (06:10→21:48)
[2022-04-12] MEDS: Morphine Sulfate 2 MG/ML SYRINGE IVP PRN ×3 (06:25→21:59)
[2022-04-12 06:58] LABS: Basophils # 0.1 K/mcL (0.0-0.2); Basophils % 0.2 %; Eosinophils % 0.2 %; Hematocrit 29.1 % (37.5-50.1); Hemoglobin 10.3 g/dL (12.9-16.9); Immature Granulocytes % 0.8 % (0-4); Lymphocytes # 1.7 K/mcL (0.6-4.6); Lymphocytes % 6.8 %; Mean Corpuscular HGB Conc 35.4 g/dL (31.6-35.5); Mean Corpuscular Hemoglobin 32.2 pg (28.0-33.3); Mean Corpuscular Volume 90.9 fL (83.0-100.0); Mean Platelet Volume 9.8 fL (9.4-12.4); Neutrophils # 21.6 K/mcL (1.6-8.9); Platelet Count 322 K/mcL (140-400); Red Cell Distribution Width 12.9 % (11.5-14.5); White Blood Count 24.5 K/mcL (4.3-11.1)
[2022-04-12 07:02] LABS: Eosinophils # 0.1 K/mcL (0.0-0.6)
[2022-04-12 07:17] LABS: BUN/Creatinine Ratio 26 (6-26); Blood Urea Nitrogen 10 mg/dL (8-23); Calcium 7.3 mg/dL (8.6-10.3); Carbon Dioxide 24 mEq/L (23-29); Chloride 100 mEq/L (98-107); Glucose 118 mg/dL (70-105); Magnesium 1.7 mg/dL (1.6-2.6); Osmolality,Calculated 266 (280-300); Sodium 128 mEq/L (136-145)
[2022-04-12] MEDS: Albuterol 2.5 MG/3 ML NEBULIZER IH PRN ×2 (08:25→16:32)
[2022-04-12] MEDS: Budesonide/Formoterol 160/4.5 1 PUFF INH IH SCH ×2 (08:25→22:26)
[2022-04-12] MEDS: Tiotropium 10 INH DOSE IH SCH (08:26)
[2022-04-12] MEDS: Nicotine 21 MG PATCH.TD24 TD SCH (08:51)
[2022-04-12] MEDS: Gabapentin 400 MG CAPSULE PO SCH ×2 (08:51→21:47)
[2022-04-12] MEDS: Aspirin 81 MG TAB.CHEW PO SCH (08:51)
[2022-04-12] MEDS ORDERED: Furosemide 40 MG/4 ML VIAL IVP SCH (13:15)
[2022-04-12] MEDS: lisinopriL 5 MG TABLET PO SCH (13:36)
[2022-04-12] MEDS: Metoprolol XL (24 HR) Succ 25 MG TAB.ER.24H PO SCH ×2 (16:28→21:47)
[2022-04-12 18:11] LABS: Adenovirus Not Detected (Not Detect); Bordetella Pertussis Not Detected (Not Detect); Chlamydophila pneumoniae Not Detected (Not Detect); Coronavirus 229E Not Detected (Not Detect); Coronavirus HKU1 Not Detected (Not Detect); Coronavirus NL63 Not Detected (Not Detect); Coronavirus OC43 Not Detected (Not Detect); Human Metapneumovirus Not Detected (Not Detect); Human Rhinovirus/Enterovirus Not Detected (Not Detect); Influenza A Subtype 2009 H1 Not Detected (Not Detect); Influenza B Not Detected (Not Detect); Mycoplasma pneumoniae Not Detected (Not Detect); Parainfluenza Virus 1 Not Detected (Not Detect); Parainfluenza Virus 2 Not Detected (Not Detect); Parainfluenza Virus 3 Not Detected (Not Detect); Parainfluenza Virus 4 Not Detected (Not Detect); Respiratory Syncytial Virus Not Detected (Not Detect); SARS-CoV-2 Not Detected (Not Detect)
[2022-04-12 20:45] LABS: ABG Base Excess 0 mEq/L (-2 to 3); ABG HCO3 22 mEq/L (21-27); ABG Oxygen Saturation 88 % (95-98); ABG PCO2 28 mmHg (35-45); ABG PH 7.51 pH Units (7.32-7.45); ABG PO2 48 mmHg (85-104); ABG TCO2 23 mEq/L (20-26)
[2022-04-12] MEDS: Albuterol 2.5 MG/3 ML NEBULIZER IH SCH (22:26)
[2022-04-12] MEDS: Furosemide 40 MG/4 ML VIAL IVP SCH (22:28)
[2022-04-12] MEDS ORDERED: Iopamidol - 370 500 ML MLS IVP ONE (23:07)
[2022-04-12] MEDS ORDERED: Ringers Solution, Lactated 1,000 ML ONE (23:16)
[2022-04-12] MEDS: *HR* Heparin 5,000 UNIT/ML VIAL IVP PRN (23:18)
[2022-04-12] MEDS ORDERED: Ringers Solution, Lactated 500 ML IVC ONE (23:24)
[2022-04-12] MEDS ORDERED: *HR* Heparin 5,000 UNIT/ML VIAL IVP PRN (23:36)
[2022-04-12] MEDS ORDERED: *HR* Heparin 5,000 UNIT/ML VIAL IVP ONE (23:36)
[2022-04-13] MEDS: Dexmedetomidine HCl 400 MCG/100 ML MLS IVC SCH ×2 (01:13→16:31)
[2022-04-13] MEDS: Heparin 25,000UNIT/250ML 1/2NS 25,000 UNIT/250 ML IV.SOLN IVC SCH (02:17)
[2022-04-13 02:55] LABS: Eosinophils % 0.1 %; Monocytes % 3.1 %
[2022-04-13 02:56] LABS: Basophils # 0.1 K/mcL (0.0-0.2); Basophils % 0.2 %; Hemoglobin 10.5 g/dL (12.9-16.9); Immature Granulocytes % 0.6 % (0-4); Lymphocytes # 1.9 K/mcL (0.6-4.6); Lymphocytes % 6.7 %; Mean Corpuscular Hemoglobin 31.7 pg (28.0-33.3); Mean Corpuscular Volume 90.6 fL (83.0-100.0); Mean Platelet Volume 10.6 fL (9.4-12.4); Monocytes # 0.9 K/mcL (0.0-1.3); Platelet Count 381 K/mcL (140-400); Red Blood Count 3.31 M/mcL (4.19-5.50); Segmented Neutrophils % 89.3 %
[2022-04-13 03:05] LABS: Heparin anti-factor XA UFH 0.58 IU/mL (0.30-0.70); INR 1.6; Prothrombin Time 17.6 Seconds (9.4-12.1)
[2022-04-13 03:15] LABS: BUN/Creatinine Ratio 26 (6-26); Blood Urea Nitrogen 11 mg/dL (8-23); Calcium 7.7 mg/dL (8.6-10.3); Carbon Dioxide 26 mEq/L (23-29); Chloride 98 mEq/L (98-107); Glucose 90 mg/dL (70-105); Magnesium 1.7 mg/dL (1.6-2.6); Osmolality,Calculated 273 (280-300); Potassium 2.8 mEq/L (3.5-5.1); Sodium 132 mEq/L (136-145)
[2022-04-13 03:17] LABS: Alanine Aminotransferase 42 Units/L (7-52); Albumin 2.2 g/dL (3.5-5.7); Albumin/Globulin Ratio 0.8 (1.1-2.2); Alkaline Phosphatase 104 Units/L (34-104); Aspartate Amino Transferase 80 Units/L (13-39); BUN/Creatinine Ratio 24 (6-26); Bilirubin,Direct 0.3 mg/dL (0.0-0.2); Bilirubin,Indirect 0.4 mg/dL (0.0-1.0); Bilirubin,Total 0.7 mg/dL (0.3-1.0); Blood Urea Nitrogen 11 mg/dL (8-23); Calcium 7.7 mg/dL (8.6-10.3); Carbon Dioxide 25 mEq/L (23-29); Chloride 99 mEq/L (98-107); Globulin 2.6 g/dL (2.4-3.5); Glucose 89 mg/dL (70-105); Magnesium 1.8 mg/dL (1.6-2.6); Osmolality,Calculated 273 (280-300); Phosphorous 3.2 mg/dL (2.7-4.5); Potassium 2.7 mEq/L (3.5-5.1); Sodium 132 mEq/L (136-145); Total Protein 4.8 g/dL (6.4-8.9)
[2022-04-13] MEDS: Ipratropium/Albuterol Neb 3 ML IH SCH ×6 (04:02→23:18)
[2022-04-13] MEDS: Albuterol 2.5 MG/3 ML NEBULIZER IH SCH (04:10)
[2022-04-13] MEDS: Calcium Gluconate 1gm/50mL 1 GM/50 ML BAG IVPB SCH ×2 (05:15→05:53)
[2022-04-13] MEDS: Meropenem 1,000 MG in Water for inj. (sterile) 20 ML IVP SCH ×3 (05:37→19:48)
[2022-04-13] MEDS: Albumin Human 5% 12.5 GM/250 ML IV.SOLN IVC SCH ×2 (05:53→09:28)
[2022-04-13] MEDS: Norepinephrine 4 MG/254 ML IV.SOLN IVC SCH ×2 (07:00→23:31)
[2022-04-13] MEDS: Tiotropium 10 INH DOSE IH SCH (07:36)
[2022-04-13] MEDS ORDERED: Meropenem 1,000 MG in Water for inj. (sterile) 20 ML IVP SCH (08:00)
[2022-04-13 08:20] LABS: ABG Base Excess -2 mEq/L (-2 to 3); ABG Chloride 98 mEq/L (98-107); ABG Glucose 93 mg/dL (60-95); ABG HCO3 20 mEq/L (21-27); ABG Ionized Calcium 1.12 mmol/L (1.15-1.35); ABG Oxygen Saturation 89 % (95-98); ABG PCO2 27 mmHg (35-45); ABG PH 7.48 pH Units (7.32-7.45); ABG PO2 51 mmHg (85-104); ABG TCO2 21 mEq/L (20-26)
[2022-04-13] MEDS: Budesonide/Formoterol 160/4.5 1 PUFF INH IH SCH ×2 (08:21→23:18)
[2022-04-13] MEDS: Furosemide 40 MG/4 ML VIAL IVP SCH ×2 (08:43→09:31)
[2022-04-13] MEDS: Nicotine 21 MG PATCH.TD24 TD SCH (08:44)
[2022-04-13 08:55] LABS: ABG Base Excess -1 mEq/L (-2 to 3); ABG HCO3 23 mEq/L (21-27); ABG Oxygen Saturation 50 % (95-98); ABG PCO2 34 mmHg (35-45); ABG PH 7.44 pH Units (7.32-7.45); ABG PO2 26 mmHg (85-104); ABG TCO2 24 mEq/L (20-26)
[2022-04-13] MEDS: Gabapentin 400 MG CAPSULE PO SCH ×2 (09:27→19:48)
[2022-04-13] MEDS: Metoprolol XL (24 HR) Succ 25 MG TAB.ER.24H PO SCH ×2 (09:27→20:05)
[2022-04-13] MEDS: Aspirin 81 MG TAB.CHEW PO SCH (09:27)
[2022-04-13] MEDS: lisinopriL 5 MG TABLET PO SCH (09:28)
[2022-04-13] MEDS: *HR* HYDROcodone/Acet 5/325 mg TABLET PO PRN ×2 (16:30→22:47)
[2022-04-13 18:29] LABS: BUN/Creatinine Ratio 25 (6-26); Blood Urea Nitrogen 10 mg/dL (8-23); Calcium 7.8 mg/dL (8.6-10.3); Carbon Dioxide 22 mEq/L (23-29); Chloride 99 mEq/L (98-107); Glucose 114 mg/dL (70-105); Osmolality,Calculated 270 (280-300); Potassium 3.9 mEq/L (3.5-5.1); Sodium 130 mEq/L (136-145)
[2022-04-13] MEDS: 0.9 % Sodium Chloride 1,000 ML IVC SCH (18:51)
[2022-04-13] MEDS: Thiamine (B-1) 100 MG in 0.9 % Sodium Chloride 50 ML IVPB SCH (18:52)
[2022-04-13] MEDS: Morphine Sulfate 2 MG/ML SYRINGE IVP PRN (19:19)
[2022-04-14] MEDS: Albumin Human 5% 12.5 GM/250 ML IV.SOLN IVC SCH ×2 (00:22→05:07)
[2022-04-14] MEDS: Heparin 25,000UNIT/250ML 1/2NS 25,000 UNIT/250 ML IV.SOLN IVC SCH ×2 (00:23→11:04)
[2022-04-14] MEDS: Ipratropium/Albuterol Neb 3 ML IH SCH ×6 (03:48→23:22)
[2022-04-14 04:10] LABS: Heparin anti-factor XA UFH 0.59 IU/mL (0.30-0.70)
[2022-04-14 04:11] LABS: INR 1.6; Prothrombin Time 17.3 Seconds (9.4-12.1)
[2022-04-14 04:14] LABS: VBG Ionized Calcium 1.11 mmol/L (1.15-1.35)
[2022-04-14 04:17] LABS: Basophils % 0.1 %; Eosinophils # 0.1 K/mcL (0.0-0.6); Eosinophils % 0.3 %; Hematocrit 25.4 % (37.5-50.1); Immature Granulocytes % 0.7 % (0-4); Lymphocytes # 2.1 K/mcL (0.6-4.6); Lymphocytes % 10.1 %; Mean Corpuscular Volume 91.4 fL (83.0-100.0); Mean Platelet Volume 10.4 fL (9.4-12.4); Monocytes # 0.6 K/mcL (0.0-1.3); Monocytes % 2.7 %; Platelet Count 336 K/mcL (140-400); Red Blood Count 2.78 M/mcL (4.19-5.50); Red Cell Distribution Width 13.2 % (11.5-14.5); Segmented Neutrophils % 86.1 %; White Blood Count 20.9 K/mcL (4.3-11.1)
[2022-04-14 04:19] LABS: Hemoglobin 8.9 g/dL (12.9-16.9)
[2022-04-14 04:28] LABS: Alanine Aminotransferase 33 Units/L (7-52); Albumin 2.2 g/dL (3.5-5.7); Alkaline Phosphatase 92 Units/L (34-104); Aspartate Amino Transferase 53 Units/L (13-39); BUN/Creatinine Ratio 26 (6-26); Bilirubin,Total 0.6 mg/dL (0.3-1.0); Blood Urea Nitrogen 9 mg/dL (8-23); Calcium 7.6 mg/dL (8.6-10.3); Carbon Dioxide 24 mEq/L (23-29); Chloride 100 mEq/L (98-107); Globulin 2.2 g/dL (2.4-3.5); Glucose 132 mg/dL (70-105); Magnesium 1.8 mg/dL (1.6-2.6); Osmolality,Calculated 275 (280-300); Phosphorous 2.8 mg/dL (2.7-4.5); Potassium 3.3 mEq/L (3.5-5.1); Sodium 132 mEq/L (136-145); Total Protein 4.4 g/dL (6.4-8.9)
[2022-04-14] MEDS: Meropenem 1,000 MG in Water for inj. (sterile) 20 ML IVP SCH ×3 (05:08→20:45)
[2022-04-14] MEDS: Gabapentin 400 MG CAPSULE PO SCH ×2 (07:44→20:45)
[2022-04-14] MEDS: Aspirin 81 MG TAB.CHEW PO SCH (07:44)
[2022-04-14] MEDS: Metoprolol XL (24 HR) Succ 25 MG TAB.ER.24H PO SCH (07:48)
[2022-04-14] MEDS: Nicotine 21 MG PATCH.TD24 TD SCH (07:59)
[2022-04-14] MEDS: Tiotropium 10 INH DOSE IH SCH (08:04)
[2022-04-14] MEDS: Budesonide/Formoterol 160/4.5 1 PUFF INH IH SCH ×2 (08:04→20:18)
[2022-04-14] MEDS ORDERED: Furosemide 40 MG/4 ML VIAL IVP ONE (09:03)
[2022-04-14] MEDS: Morphine Sulfate 2 MG/ML SYRINGE IVP PRN (14:30)
[2022-04-14] MEDS: Dexmedetomidine HCl 400 MCG/100 ML MLS IVC SCH (16:45)
[2022-04-14] MEDS: MethylPREDNISolone 40 MG/ML VIAL IVP SCH (17:26)
[2022-04-14] MEDS: Furosemide 20 MG/2 ML VIAL IVP ONE (17:26)
[2022-04-14] MEDS ORDERED: *HR* LORazepam 0.5 MG TABLET PO PRN (17:34)
[2022-04-14] MEDS ORDERED: Morphine Sulfate Oral CONC 10 MG/0.5 ML ORAL.SYG SL PRN (17:56)
[2022-04-14] MEDS ORDERED: haloperidoL 1 MG TABLET PO PRN (18:01)
[2022-04-14 19:00] LABS: VBG Ionized Calcium 1.08 mmol/L (1.15-1.35)
[2022-04-14 19:50] LABS: BUN/Creatinine Ratio 16 (6-26); Blood Urea Nitrogen 6 mg/dL (8-23); Calcium 7.9 mg/dL (8.6-10.3); Carbon Dioxide 28 mEq/L (23-29); Chloride 98 mEq/L (98-107); Glucose 109 mg/dL (70-105); Magnesium 1.5 mg/dL (1.6-2.6); Osmolality,Calculated 280 (280-300); Phosphorous 2.3 mg/dL (2.7-4.5); Potassium 2.9 mEq/L (3.5-5.1); Sodium 136 mEq/L (136-145)
[2022-04-14] MEDS ORDERED: Amiodarone Premix 150 MG/100 ML BAG IVPB ONE (20:04)
[2022-04-14] MEDS ORDERED: Amiodarone Premix 360 MG/200 ML BAG IVC ONE (20:04)
[2022-04-14] MEDS: hydrOXYzine pamoate 25 MG CAPSULE PO SCH (20:45)
[2022-04-14] MEDS: Calcium Gluconate 1gm/50mL 1 GM/50 ML BAG IVPB SCH ×2 (22:28→23:59)
[2022-04-15] MEDS ORDERED: Amiodarone Premix 360 MG/200 ML BAG IVC ONE (02:03)
[2022-04-15] MEDS: Amiodarone Premix 360 MG/200 ML BAG IVC SCH ×3 (02:06→17:13)
[2022-04-15 03:23] LABS: Eosinophils % 0.1 %; Hematocrit 26.1 % (37.5-50.1); Hemoglobin 9.1 g/dL (12.9-16.9); Immature Granulocytes % 0.5 % (0-4); Lymphocytes # 0.9 K/mcL (0.6-4.6); Lymphocytes % 8.8 %; Mean Corpuscular HGB Conc 34.9 g/dL (31.6-35.5); Mean Corpuscular Hemoglobin 31.5 pg (28.0-33.3); Mean Corpuscular Volume 90.3 fL (83.0-100.0); Monocytes # 0.3 K/mcL (0.0-1.3); Monocytes % 2.3 %; Neutrophils # 9.4 K/mcL (1.6-8.9); Platelet Count 314 K/mcL (140-400); Red Blood Count 2.89 M/mcL (4.19-5.50); Red Cell Distribution Width 13.2 % (11.5-14.5); Segmented Neutrophils % 88.3 %; White Blood Count 10.7 K/mcL (4.3-11.1)
[2022-04-15 03:30] LABS: INR 1.4; Prothrombin Time 15.3 Seconds (9.4-12.1)
[2022-04-15 03:30] LABS: VBG Ionized Calcium 1.12 mmol/L (1.15-1.35)
[2022-04-15 03:51] LABS: Alanine Aminotransferase 31 Units/L (7-52); Albumin 2.4 g/dL (3.5-5.7); Albumin/Globulin Ratio 1.1 (1.1-2.2); Alkaline Phosphatase 97 Units/L (34-104); Aspartate Amino Transferase 48 Units/L (13-39); BUN/Creatinine Ratio 14 (6-26); Bilirubin,Total 0.5 mg/dL (0.3-1.0); Blood Urea Nitrogen 5 mg/dL (8-23); Calcium 7.9 mg/dL (8.6-10.3); Carbon Dioxide 29 mEq/L (23-29); Chloride 100 mEq/L (98-107); Globulin 2.1 g/dL (2.4-3.5); Glucose 187 mg/dL (70-105); Magnesium 1.8 mg/dL (1.6-2.6); Osmolality,Calculated 278 (280-300); Phosphorous 3.3 mg/dL (2.7-4.5); Potassium 3.9 mEq/L (3.5-5.1); Sodium 133 mEq/L (136-145); Total Protein 4.5 g/dL (6.4-8.9)
[2022-04-15 04:06] LABS: Activated Partial Thrombo Time > 360.0 Seconds (26.0-36.0)
[2022-04-15] MEDS: Ipratropium/Albuterol Neb 3 ML IH SCH ×6 (04:09→23:23)
[2022-04-15] MEDS: Meropenem 1,000 MG in Water for inj. (sterile) 20 ML IVP SCH ×3 (05:40→21:13)
[2022-04-15] MEDS: Tiotropium 10 INH DOSE IH SCH (07:05)
[2022-04-15] MEDS: Budesonide/Formoterol 160/4.5 1 PUFF INH IH SCH ×2 (07:05→19:47)
[2022-04-15 07:23] LABS: Heparin anti-factor XA UFH < 0.04 IU/mL (0.30-0.70)
[2022-04-15 07:25] LABS: Activated Partial Thrombo Time 35.9 Seconds (26.0-36.0)
[2022-04-15] MEDS: *HR* Heparin 5,000 UNIT/ML VIAL IVP PRN (07:54)
[2022-04-15] MEDS: Gabapentin 400 MG CAPSULE PO SCH ×2 (09:15→21:12)
[2022-04-15] MEDS: Metoprolol XL (24 HR) Succ 25 MG TAB.ER.24H PO SCH (10:36)
[2022-04-15] MEDS: MethylPREDNISolone 40 MG/ML VIAL IVP SCH (10:36)
[2022-04-15] MEDS: Nicotine 21 MG PATCH.TD24 TD SCH (10:37)
[2022-04-15] MEDS: Aspirin 81 MG TAB.CHEW PO SCH (10:43)
[2022-04-15] MEDS ORDERED: Albumin 25% 25gram/100mL 25 GM/100 ML IV.SOLN IVPB ONE (13:08)
[2022-04-15] MEDS ORDERED: Furosemide 20 MG/2 ML VIAL IVP ONE (13:08)
[2022-04-15] MEDS: Furosemide 20 MG/2 ML VIAL IVP ONE (13:35)
[2022-04-15] MEDS: Norepinephrine 4 MG/254 ML IV.SOLN IVC SCH (14:52)
[2022-04-15] MEDS ORDERED: D5% in Water 1,000 ML IVC PRN (17:03)
[2022-04-15] MEDS ORDERED: *HR* Dextrose 50 % in Water (Syg) 50 ML SYRINGE IVP PRN (17:03)
[2022-04-15] MEDS ORDERED: Dextrose Gel 15 GM/37.5 ML TUBE PO PRN ×2 (17:03)
[2022-04-15] MEDS: hydrOXYzine pamoate 25 MG CAPSULE PO SCH (21:12)
[2022-04-15] MEDS: *HR* HYDROcodone/Acet 5/325 mg TABLET PO PRN (21:13)
[2022-04-15] MEDS: Insulin LISPRO 300 UNITS/3 ML VIAL SUBQ SCH (21:22)
[2022-04-16] MEDS: Ipratropium/Albuterol Neb 3 ML IH SCH ×6 (03:34→23:04)
[2022-04-16] MEDS: Amiodarone Premix 360 MG/200 ML BAG IVC SCH (04:37)
[2022-04-16] MEDS: Meropenem 1,000 MG in Water for inj. (sterile) 20 ML IVP SCH ×3 (05:17→21:19)
[2022-04-16] MEDS: Budesonide/Formoterol 160/4.5 1 PUFF INH IH SCH ×2 (07:38→20:31)
[2022-04-16] MEDS: Tiotropium 10 INH DOSE IH SCH (07:39)
[2022-04-16] MEDS: Metoprolol XL (24 HR) Succ 25 MG TAB.ER.24H PO SCH (08:28)
[2022-04-16] MEDS: Gabapentin 400 MG CAPSULE PO SCH ×2 (08:29→21:20)
[2022-04-16] MEDS: Nicotine 21 MG PATCH.TD24 TD SCH (08:29)
[2022-04-16] MEDS: MethylPREDNISolone 40 MG/ML VIAL IVP SCH (08:29)
[2022-04-16] MEDS: Aspirin 81 MG TAB.CHEW PO SCH (08:32)
[2022-04-16] MEDS: Insulin LISPRO 300 UNITS/3 ML VIAL SUBQ SCH ×4 (09:35→21:20)
[2022-04-16] MEDS ORDERED: Furosemide 20 MG/2 ML VIAL IVP SCH (12:30)
[2022-04-16] MEDS: *HR* Amiodarone 200 MG TABLET PO SCH ×2 (12:40→21:20)
[2022-04-16] MEDS: *HR* Heparin 5,000 UNIT/ML VIAL SQ SCH (21:18)
[2022-04-16] MEDS: Furosemide 20 MG/2 ML VIAL IVP SCH (21:19)
[2022-04-16] MEDS: hydrOXYzine pamoate 25 MG CAPSULE PO SCH (21:20)
[2022-04-17] MEDS: Ipratropium/Albuterol Neb 3 ML IH SCH ×6 (04:59→23:08)
[2022-04-17] MEDS: *HR* Heparin 5,000 UNIT/ML VIAL SQ SCH ×3 (05:30→21:36)
[2022-04-17] MEDS: Meropenem 1,000 MG in Water for inj. (sterile) 20 ML IVP SCH ×3 (05:43→21:35)
[2022-04-17 06:11] LABS: VBG Ionized Calcium 1.13 mmol/L (1.15-1.35)
[2022-04-17 06:11] LABS: Basophils % 0.1 %; Eosinophils # 0.2 K/mcL (0.0-0.6); Eosinophils % 0.9 %; Hematocrit 27.6 % (37.5-50.1); Hemoglobin 9.4 g/dL (12.9-16.9); Immature Granulocytes % 0.6 % (0-4); Lymphocytes # 2.6 K/mcL (0.6-4.6); Lymphocytes % 12.8 %; Mean Corpuscular HGB Conc 34.1 g/dL (31.6-35.5); Mean Corpuscular Hemoglobin 31.6 pg (28.0-33.3); Mean Corpuscular Volume 92.9 fL (83.0-100.0); Mean Platelet Volume 9.8 fL (9.4-12.4); Monocytes % 4.2 %; Platelet Count 252 K/mcL (140-400); Red Blood Count 2.97 M/mcL (4.19-5.50); Red Cell Distribution Width 13.6 % (11.5-14.5); Segmented Neutrophils % 81.4 %
[2022-04-17 06:15] LABS: Monocytes # 0.9 K/mcL (0.0-1.3); Neutrophils # 16.4 K/mcL (1.6-8.9); White Blood Count 20.2 K/mcL (4.3-11.1)
[2022-04-17 06:25] LABS: INR 1.2; Prothrombin Time 13.1 Seconds (9.4-12.1)
[2022-04-17 06:27] LABS: Alanine Aminotransferase 36 Units/L (7-52); Albumin 2.7 g/dL (3.5-5.7); Albumin/Globulin Ratio 1.2 (1.1-2.2); Alkaline Phosphatase 116 Units/L (34-104); Aspartate Amino Transferase 57 Units/L (13-39); BUN/Creatinine Ratio 27 (6-26); Bilirubin,Total 0.6 mg/dL (0.3-1.0); Blood Urea Nitrogen 12 mg/dL (8-23); Calcium 8.3 mg/dL (8.6-10.3); Carbon Dioxide 32 mEq/L (23-29); Chloride 95 mEq/L (98-107); Globulin 2.3 g/dL (2.4-3.5); Glucose 100 mg/dL (70-105); Magnesium 1.6 mg/dL (1.6-2.6); Osmolality,Calculated 274 (280-300); Potassium 3.6 mEq/L (3.5-5.1); Sodium 132 mEq/L (136-145)
[2022-04-17] MEDS: Budesonide/Formoterol 160/4.5 1 PUFF INH IH SCH ×2 (07:47→19:59)
[2022-04-17] MEDS: Tiotropium 10 INH DOSE IH SCH (07:47)
[2022-04-17] MEDS: Aspirin 81 MG TAB.CHEW PO SCH (10:01)
[2022-04-17] MEDS: Insulin LISPRO 300 UNITS/3 ML VIAL SUBQ SCH ×4 (10:01→21:39)
[2022-04-17] MEDS: Nicotine 21 MG PATCH.TD24 TD SCH (10:01)
[2022-04-17] MEDS: predniSONE 20 MG TABLET PO SCH (10:02)
[2022-04-17] MEDS: *HR* Amiodarone 200 MG TABLET PO SCH ×2 (10:02→21:38)
[2022-04-17] MEDS: Gabapentin 400 MG CAPSULE PO SCH ×2 (10:02→21:38)
[2022-04-17] MEDS: Furosemide 20 MG/2 ML VIAL IVP SCH ×2 (10:02→21:37)
[2022-04-17] MEDS: Metoprolol XL (24 HR) Succ 25 MG TAB.ER.24H PO SCH (10:02)
[2022-04-17] MEDS ORDERED: Ondansetron ODT 4 MG TAB.RAPDIS SL PRN (11:04)
[2022-04-17] MEDS: hydrOXYzine pamoate 25 MG CAPSULE PO SCH (21:38)
[2022-04-18] MEDS ORDERED: *HR* Metoprolol 5 MG/5 ML VIAL IVP PRN (00:10)
[2022-04-18] MEDS: Ipratropium Neb 0.5 MG NEBULIZER IH SCH ×4 (04:23→22:07)
[2022-04-18] MEDS: Levalbuterol Neb 0.63 MG/3 ML IH SCH ×4 (04:23→22:07)
[2022-04-18 05:04] LABS: Basophils % 0.1 %; Eosinophils # 0.2 K/mcL (0.0-0.6); Eosinophils % 0.9 %; Hematocrit 27.8 % (37.5-50.1); Hemoglobin 9.4 g/dL (12.9-16.9); Immature Granulocytes % 0.5 % (0-4); Lymphocytes # 1.9 K/mcL (0.6-4.6); Lymphocytes % 10.4 %; Mean Corpuscular HGB Conc 33.8 g/dL (31.6-35.5); Mean Corpuscular Hemoglobin 31.5 pg (28.0-33.3); Mean Corpuscular Volume 93.3 fL (83.0-100.0); Mean Platelet Volume 10.8 fL (9.4-12.4); Monocytes # 0.8 K/mcL (0.0-1.3); Monocytes % 4.2 %; Neutrophils # 15.1 K/mcL (1.6-8.9); Platelet Count 266 K/mcL (140-400); Red Blood Count 2.98 M/mcL (4.19-5.50); Red Cell Distribution Width 13.5 % (11.5-14.5); Segmented Neutrophils % 83.9 %
[2022-04-18 05:26] LABS: BUN/Creatinine Ratio 28 (6-26); Blood Urea Nitrogen 10 mg/dL (8-23); Calcium 8.3 mg/dL (8.6-10.3); Carbon Dioxide 31 mEq/L (23-29); Chloride 95 mEq/L (98-107); Glucose 99 mg/dL (70-105); Osmolality,Calculated 271 (280-300); Potassium 3.7 mEq/L (3.5-5.1); Sodium 131 mEq/L (136-145)
[2022-04-18] MEDS: Meropenem 1,000 MG in Water for inj. (sterile) 20 ML IVP SCH ×3 (05:44→21:50)
[2022-04-18] MEDS: *HR* Heparin 5,000 UNIT/ML VIAL SQ SCH ×4 (05:47→22:14)
[2022-04-18] MEDS: predniSONE 20 MG TABLET PO SCH (08:41)
[2022-04-18] MEDS: Furosemide 20 MG TABLET PO SCH ×2 (08:42→17:56)
[2022-04-18] MEDS: Gabapentin 400 MG CAPSULE PO SCH ×3 (08:42→22:14)
[2022-04-18] MEDS: Insulin LISPRO 300 UNITS/3 ML VIAL SUBQ SCH ×4 (08:42→22:10)
[2022-04-18] MEDS: *HR* Amiodarone 200 MG TABLET PO SCH ×3 (08:42→22:14)
[2022-04-18] MEDS: Metoprolol XL (24 HR) Succ 25 MG TAB.ER.24H PO SCH (08:42)
[2022-04-18] MEDS: Aspirin 81 MG TAB.CHEW PO SCH (08:42)
[2022-04-18] MEDS: Nicotine 21 MG PATCH.TD24 TD SCH (08:43)
[2022-04-18] MEDS: Tiotropium 10 INH DOSE IH SCH (09:42)
[2022-04-18] MEDS: *HR* HYDROcodone/Acet 5/325 mg TABLET PO PRN (21:49)
[2022-04-18] MEDS: hydrOXYzine pamoate 25 MG CAPSULE PO SCH ×2 (21:50→22:09)
[2022-04-19] MEDS: Ipratropium Neb 0.5 MG NEBULIZER IH SCH ×4 (03:36→22:56)
[2022-04-19] MEDS: Levalbuterol Neb 0.63 MG/3 ML IH SCH ×4 (03:37→22:57)
[2022-04-19] MEDS: Meropenem 1,000 MG in Water for inj. (sterile) 20 ML IVP SCH ×3 (05:31→21:18)
[2022-04-19] MEDS: Insulin LISPRO 300 UNITS/3 ML VIAL SUBQ SCH ×4 (09:30→20:54)
[2022-04-19] MEDS: *HR* Heparin 5,000 UNIT/ML VIAL SQ SCH ×3 (09:30→21:03)
[2022-04-19] MEDS: Gabapentin 400 MG CAPSULE PO SCH ×2 (09:31→21:03)
[2022-04-19] MEDS: predniSONE 20 MG TABLET PO SCH (09:31)
[2022-04-19] MEDS: Aspirin 81 MG TAB.CHEW PO SCH (09:31)
[2022-04-19] MEDS: Nicotine 21 MG PATCH.TD24 TD SCH (09:31)
[2022-04-19] MEDS: *HR* Amiodarone 200 MG TABLET PO SCH ×2 (09:31→21:03)
[2022-04-19] MEDS: Metoprolol XL (24 HR) Succ 25 MG TAB.ER.24H PO SCH (09:31)
[2022-04-19] MEDS: Furosemide 20 MG TABLET PO SCH ×2 (09:31→17:17)
[2022-04-19] MEDS: Tiotropium 10 INH DOSE IH SCH (10:46)
[2022-04-19] MEDS ORDERED: *HR* LORazepam 2 MG/ML VIAL IVP ONE (12:57)
[2022-04-19] MEDS ORDERED: Thiamine (B-1) 200 MG/2 ML VIAL IM ONE (13:33)
[2022-04-19] MEDS: QUEtiapine Fumarate 25 MG TABLET PO SCH ×2 (14:02→21:03)
[2022-04-19] MEDS ORDERED: haloperidoL 1 MG TABLET PO PRN (14:15)
[2022-04-19] MEDS: hydrOXYzine pamoate 25 MG CAPSULE PO SCH (21:02)
[2022-04-20] MEDS: Ipratropium Neb 0.5 MG NEBULIZER IH SCH ×2 (03:58→09:48)
[2022-04-20] MEDS: Levalbuterol Neb 0.63 MG/3 ML IH SCH ×2 (03:58→09:48)
[2022-04-20] MEDS: Meropenem 1,000 MG in Water for inj. (sterile) 20 ML IVP SCH (05:43)
[2022-04-20] MEDS: *HR* Heparin 5,000 UNIT/ML VIAL SQ SCH (05:48)
[2022-04-20 06:01] VITALS: BP 102/66; PULSE 87; TEMP 98; O2SAT 93
[2022-04-20] MEDS: Insulin LISPRO 300 UNITS/3 ML VIAL SUBQ SCH (08:36)
[2022-04-20] MEDS: Gabapentin 400 MG CAPSULE PO SCH (09:21)
[2022-04-20] MEDS: Nicotine 21 MG PATCH.TD24 TD SCH (09:22)
[2022-04-20] MEDS: QUEtiapine Fumarate 25 MG TABLET PO SCH (09:22)
[2022-04-20] MEDS: *HR* Amiodarone 200 MG TABLET PO SCH (09:22)
[2022-04-20] MEDS: Furosemide 20 MG TABLET PO SCH (09:22)
[2022-04-20] MEDS: Metoprolol XL (24 HR) Succ 25 MG TAB.ER.24H PO SCH (09:22)
[2022-04-20] MEDS: Aspirin 81 MG TAB.CHEW PO SCH (09:22)
[2022-04-20] MEDS: predniSONE 20 MG TABLET PO SCH (09:23)
[2022-04-20] MEDS: Tiotropium 10 INH DOSE IH SCH (09:48)
[2022-04-20] MEDS ORDERED: Pfizer COVID-19 VAC,BIVALENT,MRNA 30 MCG/0.3 ML VIAL IM ONE (10:14)
[2022-04-20] MEDS ORDERED: Thiamine (B-1) 100 MG TABLET PO SCH (11:45)
== END 2022-04-20 15:39 | DRG 710 ==
LOC: 4WAOSI 17:14 → EMEROOARM 17:14 → SUATTDRO 21:43 → 4WAOSI 22:22 → 2NENU 04-12 17:59 → ICNU 04-13 01:05 → 2NNU 04-16 14:33 → 3NENU 04-17 14:28
PROVIDERS: ADMIT Internal Medicine; ATTEND Internal Medicine